=== PATIENT | female | born 1930 | race Caucasian/White ===

== ENCOUNTER 2017-01-22 20:05 | Observation (INO) | payer MEDICARE, OTHER ==
[2017-01-22 20:37] LABS: #Eosinphils 0.2 thou/uL (0.0-0.7); #Lymphocytes 1.6 thou/uL (1.20-3.40); #Monocytes 0.6 thou/uL (0.11-0.59); #Neutrophils 7.9 thou/uL (1.40-6.50); %Basophils 0.2 % (0.0-1.0); %Eosinophils 2.3 % (0.0-10.0); %Lymphocytes 15.6 % (21.0-51.0); %Monocytes 5.8 % (0.0-10.0); Hematocrit 39.7 % (36.0-47.0); Mean Platelet Volume 7.4 fL (7.4-10.4); Red Blood Cell (RBC) Count 4.15 mill/uL (4.20-5.40); White Blood Cell (WBC) Count 10.4 thou/uL (4.8-10.8)
[2017-01-22 20:58] LABS: ALT (SGPT) 37 U/L (8-55); AST (SGOT) 57 U/L (5-34); Alkaline Phosphatase 139 U/L (40-150); Anion Gap 15 mmol/L (10-20); BUN (Urea Nitrogen) 35 mg/dL (9.8-20.1); Bilirubin, Total 0.9 mg/dL (0.2-1.2); CK (CPK) 51 U/L (29-168); Calc. Creatinine Clearance 0 mL/min (70-130); Calcium 9.8 mg/dL (7.8-10.44); Carbon Dioxide 27 mmol/L (23-31); Chloride 100 mmol/L (98-107); Estimated GFR-MDRD 33; Globulin 4.1 g/dL (2.4-3.5); Lipase 102 U/L (8-78); Protein, Total 7.9 g/dL (6.0-8.3)
--- NOTE | 2017-01-22 20:59 | RAD ---
PORTABLE UPRIGHT FRONTAL CHEST RADIOGRAPH 01/22/17 COMPARISON: 06/19/16 HISTORY: Chest pain. FINDINGS: There is increased linear interstitial density throughout both lungs, similar when compared to prior imaging, suggesting chronic interstitial disease. Areas of previously noted air space disease have re solved. There is no pneumothorax or pleural fluid. There is no lobar consolidation, or alveolar edema . There is atherosclerotic calcification in the aortic arch. IMPRESSION: Increased linear interstitial density noted bilaterally. No focal consolidation or alveolar edema. POS: [facility]
[2017-01-22 21:02] LABS: Troponin I Less than 0.010 ng/mL (< 0.028)
[2017-01-22] MEDS ORDERED: Ondansetron HCl/PF 4 MG/2 ML Vial ONE (22:09)
[2017-01-22] MEDS ORDERED: Sodium Chloride 0.9% 1,000 ML IV SCH (23:15)
[2017-01-22 23:33] VITALS: BMI 25.2
[2017-01-22 23:47] LABS: Troponin I 0.012 ng/mL (< 0.028)
[2017-01-23] MEDS ORDERED: Morphine 4 MG/ML VIAL SLOW IVP PRN (00:02)
[2017-01-23] MEDS ORDERED: Acetaminophen 325 MG TAB PO PRN (00:02)
[2017-01-23] MEDS ORDERED: Nitroglycerin 0.4 MG TAB (25 Tab Bottle) PO PRN (00:02)
[2017-01-23] MEDS ORDERED: Guaifenesin DM 100-10/5 ML UDCUP PO PRN (00:02)
[2017-01-23] MEDS ORDERED: Insulin Regular 300 UNITS/3 ML VIAL SC PRN (00:02)
[2017-01-23] MEDS ORDERED: Dextrose 5% in Water 1,000 ML IV PRN (00:02)
[2017-01-23] MEDS ORDERED: traMADol HCl 50 MG TAB PO PRN (00:02)
[2017-01-23] MEDS ORDERED: Dextrose 50% Abboject 50 ML SYRINGE SLOW IVP PRN (00:02)
[2017-01-23] MEDS ORDERED: Sodium Chloride 0.9% 1,000 ML IV SCH (00:02)
[2017-01-23 02:39] LABS: #Lymphocytes 0.4 thou/uL (1.20-3.40); #Monocytes 0.6 thou/uL (0.11-0.59); #Neutrophils 8.7 thou/uL (1.40-6.50); %Eosinophils 0.3 % (0.0-10.0); %Lymphocytes 4.1 % (21.0-51.0); %Monocytes 6.6 % (0.0-10.0); Hematocrit 34.4 % (36.0-47.0); Mean Platelet Volume 7.6 fL (7.4-10.4); Red Blood Cell (RBC) Count 3.63 mill/uL (4.20-5.40); White Blood Cell (WBC) Count 9.7 thou/uL (4.8-10.8)
[2017-01-23 03:03] LABS: Troponin I 0.014 ng/mL (< 0.028)
[2017-01-23 04:09] LABS: Calcium 9.3 mg/dL (7.8-10.44); Chloride 103 mmol/L (98-107)
[2017-01-23 04:10] LABS: ALT (SGPT) 67 U/L (8-55); AST (SGOT) 147 U/L (5-34); Alkaline Phosphatase 193 U/L (40-150); Anion Gap 12 mmol/L (10-20); BUN (Urea Nitrogen) 32 mg/dL (9.8-20.1); Calc. Creatinine Clearance 32 mL/min (70-130); Carbon Dioxide 25 mmol/L (23-31); Cholesterol 153 mg/dl (< 200 Desired); Estimated GFR-MDRD 37; Globulin 3.2 g/dL (2.4-3.5); LDL Cholesterol, Calculated 93 mg/dL; Lipase 64 U/L (8-78); Protein, Total 6.4 g/dL (6.0-8.3)
[2017-01-23 04:17] VITALS: TEMP 98.7
--- NOTE | 2017-01-23 04:18 | HP ---
REASON FOR ADMISSION: Chest pain. HISTORY OF PRESENT ILLNESS: The patient gives history of having left-sided chest pain which started around 6:00 p.m. This was associated with nausea and she vomited a large amount in the ER here. The left lower ribcage pain is worse on deep palpation. No complaints of cough or expectoration. No hi story of fever. No complaints of palpitations, PND or orthopnea. Patient states she has had a recen t stress test done here which was normal. She has also had an angiogram several years ago in [place], which was normal as far she knows. The patient has significant stress at home due to personal loss. Her son, Mr. Madera was 58-year-old on Wednesday from [place]. His Burial is scheduled for Wednesday at 3 :00 p.m. This is in [place] and patient has to go tomorrow afternoon to [place]. She also lost her hu sband for COPD flare-up in February of this year. She normally walks by herself. PAST MEDICAL AND SURGICAL HISTORY: History of interstitial lung disease for which she follows up [facility] Dr. Pantoja, diabetes mellitus type 2 which is diet controlled, hypertension, hypothyroidism, dyslipidemia, chronic atrial fibrillation, right breast calcium buildup which was removed in 2005, ri ght arm, wart removed, hysterectomy. CURRENT MEDICATIONS: Patient is on Eliquis 5 mg p.o. twice daily, valsartan 160 mg p.o. daily, levot hyroxine 50 mcg p.o. daily, Lasix 40 mg p.o. daily, Actos 30 mg p.o. daily, simvastatin 20 mg p.o. lemuel tiwari, flecainide 50 mg p.o. twice daily, aspirin 81 mg p.o. daily, metoprolol extended release 25 mg p .o. daily, vitamin D3 of 1000 units p.o. daily, Ultram p.r.n. ALLERGIES: LEVAQUIN. PERSONAL HISTORY: Does not abuse alcohol or drugs. No history of smoking. FAMILY HISTORY: Father of a stroke and its complications. Her son of massive [place] at the ag e of 58 on Wednesday. REVIEW OF SYSTEMS: The following complete review of systems was negative, unless otherwise mentioned in the HPI or below: CONSTITUTIONAL: Weight loss or gain, ability to conduct usual activities. SKIN: Rash, itching. EYES: Double vision, pain. ENT/MOUTH: Nose bleeding, neck stiffness, pain, tenderness. CARDIOVASCULAR: Palpitations, dyspnea on exertion, orthopnea. RESPIRATORY: Shortness of breath, wheezing, cough, hemoptysis, fever or night sweats. GASTROINTESTINAL: Poor appetite, abdominal pain, heartburn, nausea, vomiting, constipation, or diarr hea. GENITOURINARY: Urgency, frequency, dysuria, nocturia. MUSCULOSKELETAL: Pain, swelling. NEUROLOGIC/PSYCHIATRIC: Anxiety, depression. ALLERGY/IMMUNOLOGIC: Skin rash, bleeding tendency. PHYSICAL EXAMINATION: GENERAL: The patient is an 86-year-old female who is not in any acute distress. VITAL SIGNS: Blood pressure 160/78, pulse 78 per minute, respiratory rate 20 per minute, temperature 98.9 degrees Fahrenheit, saturating 93% on room air. NECK: Supple, no elevated JVD. HEENT: Eyes, extraocular muscles intact. Pupils are reacting to light. Oral cavity mucous membrane s are dry. No exudates or congestion. CARDIOVASCULAR: S1, S2 heard. Regular rhythm. RESPIRATORY: Air entry 1+ bilaterally. No rales or rhonchi. ABDOMEN: Soft, bowel sounds heard. No tenderness, rigidity or guarding. EXTREMITIES: No peripheral edema or calf tenderness. VASCULAR SYSTEM: Peripheral pulses 2+ bilateral, no ischemic ulcerations or gangrene. CENTRAL NERVOUS SYSTEM: No gross focal deficits seen. Patient is alert, awake, oriented x3. PSYCHIATRIC: The patient's mood is a bit anxious, otherwise no hallucinations or delusions. LABORATORY AND X-RAY FINDINGS: EKG done shows normal sinus rhythm at 71 beats per minute. There is borderline LVH seen. Chest x-ray done shows increased linear interstitial density noted bilaterally, no focal consolidation or alveolar edema. White count of 10, H&H 13 and 39, platelet count 242 with 76% neutrophils. Electrolytes are stable. BUN 35, creatinine 1.4, glucose 213, AST 57, ALT 37, alk chavo phosphatase 139. Troponin x2 is negative. Lipase is 102, albumin is 3.8. CLINICAL IMPRESSION AND PLAN: The patient will be under observation on telemetry for atypical chest pain. She also has lost her son on Wednesday and the Burial is on Wednesday. Patient also had a large vom iting episode in the ER. Likely, she is stressed out from personal loss. She has had a recent stres s test. Two sets of troponin are negative. We will not do any further cardiac workup at this time. Patient follows up with Dr. Cedillo at [facility] and she needs to schedule a followup appointment in 4 weeks. She will be closely monitored on telemetry in view of her atrial fi brillation until morning. She can be released, if she remains hemodynamically stable and tolerating oral diet. The patient has elevated lipase and a repeat level will be obtained just to make sure thi s is not related to the pancreas. She has no complaints of abdominal pain as such. We will continue her Eliquis, aspirin, Lipitor, Tambocor, Synthroid, Lopressor, and valsartan as before. The dose of valsartan could be reduced to 80 mg on discharge. We will continue to closely monitor her for any h emodynamic compromise.
[2017-01-23 07:19] LABS: Bilirubin, Total 1.7 mg/dL (0.2-1.2)
[2017-01-23 08:05] VITALS: BP 145/65
[2017-01-23] MEDS ORDERED: Famotidine 20 MG TAB PO SCH (09:00)
[2017-01-23] MEDS ORDERED: Aspirin 325 MG TAB PO SCH (09:00)
[2017-01-23] MEDS ORDERED: Metoprolol Tartrate 25 MG TAB PO SCH (09:00)
[2017-01-23] MEDS ORDERED: Atorvastatin Calcium 10 MG TAB PO SCH (09:00)
[2017-01-23] MEDS ORDERED: Valsartan 80 MG TAB PO SCH (09:00)
[2017-01-23] MEDS ORDERED: Apixaban 5 MG TAB PO SCH (09:00)
--- NOTE | 2017-01-23 10:08 | PDOC.PN ---
- Subjective Encounter Start Date: 01/23/17 Encounter Start Time: 09:30 Subjective: No more chest pain. No N/V/Abd pain. Ate breakfast well. Sad about -: son but no SI or severe symptoms. Eager to go so she can make it to -: the . - Objective Resuscitation Status: Resuscitation Status FULL:Full Resuscitation MAR Reviewed: Yes Vital Signs & Weight: Vital Signs (12 hours) Temp Pulse Resp BP BP Pulse Ox 01/23/17 07:59 98.7 F 87 16 01/23/17 07:15 98.4 F 79 16 145/65 H 99 01/23/17 04:03 98.7 F 87 16 121/56 L 92 L 01/23/17 00:02 94 L 01/22/17 22:49 99.0 F 98 18 146/70 H 94 L Weight Admit Weight 147 lb 6.4 oz Weight 147 lb 6.4 oz I&O: 01/22/17 01/23/17 01/24/17 06:59 06:59 06:59 Intake Total 597 Output Total 400 Balance 197 Result Diagrams: 01/23/17 02:24 01/23/17 02:24 Additional Labs: Accuchecks 01/23/17 05:17 POC Glucose 192 H Phys Exam - Physical Examination Constitutional: NAD HEENT: moist MMs Respiratory: no wheezing, no rales, no rhonchi, clear to auscultation bilateral Cardiovascular: RRR, no significant murmur Gastrointestinal: soft, non-tender, positive bowel sounds Neurological: non-focal, moves all 4 limbs Psychiatric: normal affect, A&O x 3 Dx/Plan (1) Chest pain Code(s): R07.9 - CHEST PAIN, UNSPECIFIED Status: Resolved Qualifiers: (2) Acute stress reaction Code(s): F43.0 - ACUTE STRESS REACTION Status: Acute Plan: N/V resolved. Tearful when discusses her son, but no inappropriate or severe symptoms of depression at this time. Good community support from her sabianism. - Plan cont current plan of care D/C home. F/u with Dr. Cedillo in 2-3 weeks. * . - Discharge Day Encounter end time: 10:00
[2017-01-23] MEDS ORDERED: Glimepiride 1 MG TAB PO SCH (10:30)
--- NOTE | 2017-01-23 11:58 | DIS ---
DATE OF ADMISSION: 01/22/2017 DATE OF DISCHARGE: 01/23/2017 PRIMARY CARE PHYSICIAN: Dr. Diaz. DIAGNOSES ON ADMISSION: 1. Nausea and vomiting. 2. Atypical chest pain. 3. Elevated lipase. DIAGNOSES AT DISCHARGE: 1. Atypical chest pain, resolved. 2. Stress reaction. 3. Elevated lipase, resolved. PROCEDURES: None. CONSULTATIONS: None. PERTINENT LABORATORY: Negative D-dimer. Cardiac markers negative x3. Lipase originally 102, after significant vomiting resolved to 64 in the morning. SUMMARY OF HOSPITAL COURSE: This is an 86-year-old white female who recently lost her only remaining son. She is supposed to attend the tomorrow. Yesterday, the patient developed severe nause a associated with left lower ribcage pain, worse with deep palpation. The patient has had a recent n egative stress test done. She was in the emergency room, she had vomiting a large amount of material and then started feeling better. Her pain resolved. The patient was put in observation overnight. She was able to eat and drink without recurrence of pain or nausea and vomiting. Her lipase was mil dly elevated after the vomiting, but it resolved this morning. She is back to her normal state. Sym ptoms are most likely due to stress reaction from her son dying and the upcoming . She is fee ling back to normal now and would like to be discharged so she could make it to the . DISCHARGE MANAGEMENT: Discharge home. 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 Cedillo in the next 2- 3 weeks and follow up with her primary care physician, Dr. Diaz in the next 1-2 weeks. ACTIVITY: As tolerated. DIET: Diabetic, low sodium diet. Warnings given about worsening depression symptoms, to follow up with her primary care doctor and if the acute grief reaction does not resolve or gets worse, then she may need to start medication.
[2017-01-23] MEDS ORDERED: Levothyroxine Sodium 50 MCG TAB PO SCH (21:00)
[2017-01-24] MEDS ORDERED: Glimepiride 1 MG TAB PO SCH (09:00)
--- NOTE | 2017-01-26 13:26 | EKG ---
Test Reason : Blood Pressure : / mmHG Vent. Rate : 071 BPM Atrial Rate : 071 BPM P-R Int : 136 ms QRS Dur : 096 ms QT Int : 392 ms P-R-T Axes : 069 000 012 degrees QTc Int : 425 ms Normal sinus rhythm Minimal voltage criteria for LVH, may be normal variant Borderline ECG Confirmed by PAULINA HOUSE, HIMA ([id number]), health editor RYAN MARRUFO ([id number]) on 01/26/2017 1:25:50 PM Referred By: Confirmed By:HIMA GALLARDO MD
== END 2017-01-23 11:00 | disposition home or self-care (01) ==
LOC: ERS 20:05 → 2SW 21:36
PROVIDERS: ADMIT Internal Medicine; ATTEND Internal Medicine
DX: R07.89 Other chest pain (principal); R74.8 Abnormal levels of other serum enzymes; E11.9 Type 2 diabetes mellitus without complications; I10 Essential (primary) hypertension; E03.9 Hypothyroidism, unspecified; I48.2 Chronic atrial fibrillation; Z79.01 Long term (current) use of anticoagulants; Z79.82 Long term (current) use of aspirin; Z79.899 Other long term (current) drug therapy; Z85.828 Personal history of other malignant neoplasm of skin; Z82.49 Family history of ischemic heart disease and other diseases of the circulatory system; Z88.1 Allergy status to other antibiotic agents; Z90.710 Acquired absence of both cervix and uterus; Z98.890 Other specified postprocedural states; E78.00 Pure hypercholesterolemia, unspecified
CPT/HCPCS: 71010; 80053 ×2; 80061; 82550; 82553; 82962; 83690 ×2; 84484 ×3; 85025 ×2; 85379; 93005; 94760; 96360; 96361; 96374; 97139; 99285; G0378; 36415; 36416; J1815; J2405

== ENCOUNTER 2017-03-11 08:24 | Outpatient (CLI) | payer MEDICARE, OTHER ==
--- NOTE | 2017-03-11 13:22 | ULT ---
ULTRASOUND ABDOMEN COMPLETE: Note to billing office: a right upper quadrant ultrasound is entered into the system, but the sonogra pher performed a complete abdominal ultrasound. 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 TECHNIQUE: Hilton-scale ultrasound evaluation of the liver, gallbladder, spleen, pancreas, common bile duct, kidne ys, abdominal aorta, and inferior vena cava (IVC). FINDINGS: Hepatic margins are nodular. Right lobe of liver is small. Left lobe of the liver is not small. Hepat ic echotexture is diffusely heterogeneous. No hydronephrosis of bilateral kidneys. A 1.5 cm cyst at the junction between the renal sinus and rig ht upper pole parenchyma in the right kidney. No splenomegaly. Nonspecific sonographic appearance of the pancreas. Gallbladder is contracted despite the patient not being NPO. Difficult to evaluate gallbladder becaus e of contraction. Gallbladder wall thickness 3 mm. No definite gallstone identified. No pericholecyst ic edema. Common duct caliber 7 mm. No ascites identified. Limited visualization of inferior vena cava. Abdominal aorta not demonstrated on these images, presumably obscured by shadowing from bowel gas. IMPRESSION: 1. Hepatic cirrhosis. 2. Contracted gallbladder. BRI Hoskins POS: [facility]
== END 2017-03-11 08:25 | disposition home or self-care (01) ==
LOC: ULT 08:24
PROVIDERS: ATTEND Internal Medicine Gastroenterology
DX: K74.60 Unspecified cirrhosis of liver (principal); K82.0 Obstruction of gallbladder
CPT/HCPCS: 76705

== ENCOUNTER 2017-03-23 18:25 | Inpatient (IN) | payer MEDICARE, OTHER ==
[~2017-03-23 18:25] MED LIST: ISOVUE-370 76%-LOCM 1 ML ONE
[2017-03-23 19:01] LABS: #Eosinphils 0.1 thou/uL (0.0-0.7); #Lymphocytes 1.5 thou/uL (1.20-3.40); #Monocytes 0.7 thou/uL (0.11-0.59); #Neutrophils 6.5 thou/uL (1.40-6.50); %Basophils 0.4 % (0.0-1.0); %Eosinophils 1.4 % (0.0-10.0); %Lymphocytes 16.9 % (21.0-51.0); %Monocytes 7.5 % (0.0-10.0); %Neutrophils 73.9 % (42.0-75.0); Hemoglobin 12.8 g/dL (12.0-16.0); Mean Corpuscular HGB CONC 32.9 g/dL (32.0-36.0); Mean Corpuscular Hemoglobin 31.2 pg (27.0-31.0); Mean Platelet Volume 8.2 fL (7.4-10.4); Platelet Count 159 thou/uL (130-400); RBC Distribution Width 12.4 % (11.5-14.5); Red Blood Cell (RBC) Count 4.09 mill/uL (4.20-5.40); White Blood Cell (WBC) Count 8.7 thou/uL (4.8-10.8)
[2017-03-23 19:09] LABS: INR-International Normal Ratio 1.2; PTT 32.7 SEC (22.9-36.1)
[2017-03-23 19:26] LABS: ALT (SGPT) 83 U/L (8-55); AST (SGOT) 109 U/L (5-34); Albumin 3.7 g/dL (3.4-4.8); Alkaline Phosphatase 203 U/L (40-150); Anion Gap 12 mmol/L (10-20); BUN (Urea Nitrogen) 20 mg/dL (9.8-20.1); Bilirubin, Total 2.9 mg/dL (0.2-1.2); CK (CPK) 46 U/L (29-168); Calc. Creatinine Clearance 0 mL/min (70-130); Calcium 9.8 mg/dL (7.8-10.44); Carbon Dioxide 30 mmol/L (23-31); Chloride 101 mmol/L (98-107); Estimated GFR-MDRD 41; Glucose 144 mg/dL (83-110); Potassium 3.8 mmol/L (3.5-5.1); Protein, Total 7.7 g/dL (6.0-8.3); Sodium 139 mmol/L (136-145)
--- NOTE | 2017-03-23 19:26 | RAD ---
PORTABLE CHEST: 03/23/17 HISTORY: Chest pain. COMPARISON: 01/22/17. Heart is mildly prominent. Prominent aortic calcification again noted. The vascular and interstitial markings are prominent but are stable from prior exam. Some of the interstitial markings may represe nt chronic interstitial change rather than edema. No effusion. No focal infiltrate. IMPRESSION: Chronic appearing lung changes which appear stable from prior exam. POS: [facility]
[2017-03-23] MEDS ORDERED: Ondansetron HCl/PF 4 MG/2 ML Vial ONE (19:30)
[2017-03-23] MEDS ORDERED: Labetalol HCl 100 MG/20 ML VIAL ONE (19:30)
[2017-03-23 19:31] LABS: CKMB 0.9 ng/mL (0-6.6); Troponin I 0.017 ng/mL (< 0.028)
[2017-03-23] MEDS ORDERED: Acetaminophen 500 MG TAB ONE (20:38)
[2017-03-23] MEDS ORDERED: Piperacillin/Tazobactam 4.5 GM in Sodium Chloride 0.9% 100 ML IVPB SCH (20:45)
[2017-03-23] MEDS ORDERED: Aspirin 300 MG Suppository ONE (21:31)
[2017-03-23] MEDS ORDERED: Acetaminophen 325 MG Suppository ONE (21:31)
[2017-03-23] MEDS ORDERED: Acetaminophen 650 MG Suppository ONE (21:31)
[2017-03-23 21:57] LABS: Troponin I 0.033 ng/mL (< 0.028)
--- NOTE | 2017-03-23 22:02 | ULT ---
GALLBLADDER ULTRASOUND: 03/23/17 HISTORY: Epigastric pain, nausea, vomiting. Gallbladder is distended. There is echogenic sludge seen in the gallbladder. There is a tiny amount o f pericholecystic edema. Technologist describes a negative Bocanegra's sign. Common bile duct is mildly dilated measured up to 1.2 cm. There is also mild intrahepatic ductal dila tation. The liver is unremarkable. The right kidney shows no evidence of hydronephrosis. A small cyst in the mid right kidney measures 1.3 cm. The pancreas is partially imaged and appears unremarkable as visualized. IMPRESSION: 1. Distended gallbladder with mild pericholecystic edema and echogenic sludge. 2. Dilated common bile duct and mild dilatation of intrahepatic bile ducts. Common duct stone or ampullary lesion should be excluded. POS: [facility]
--- NOTE | 2017-03-23 22:10 | CT ---
CT ABDOMEN AND PELVIS WITH CONTRAST 03/23/17 Multiple axial tomograms obtained through the abdomen and pelvis with IV enhancement. HISTORY: Abdominal pain. Nausea and vomiting. Upper abdominal pain. FINDINGS: The gallbladder is distended and there is pericholecystic fluid which corresponds to the ultrasound f indings. The ultrasound also demonstrated gallbladder sludge although no definite gallstones were alma arent. There is intra and extrahepatic biliary duct dilatation which was seen on ultrasound. There is an area of low attenuation in the pancreatic head region measuring 1.0 cm. This may be cystic. Neopl asm is not excluded. The liver, spleen and pancreas otherwise unremarkable. Adrenal glands unremarkable. There are parapel merari cysts in the upper pole of the left kidney measuring up to 3 cm. A mid pole cyst measures 2.5 cm and a lower pole cyst on the left measures 5.3 cm. There are also several smaller cysts in the right kidney. No hydronephrosis. Urinary bladder is distended and appears unremarkable. Small bowel loops are normal caliber. Appendix is unremarkable. The colon shows scattered diverticula . Transverse colon is nondistended and not adequately evaluated. No evidence of diverticulitis. Images through the pelvis shows evidence of hysterectomy. Aorta is normal caliber. IMPRESSION: 1. The gallbladder is abnormally distended with pericholecystic fluid. There is mild intra and e xtrahepatic biliary duct dilatation corresponding to ultrasound findings. 2. 1.0 cm low density lesion in the pancreatic head which is indeterminate. Followup will be nec essary to confirm stability. 3. Bilateral renal cystic lesions as described. POS: [facility]
[2017-03-23 22:25] LABS: Bilirubin Small (Negative); Blood, Urine Small (Negative); Clarity CLOUDY (Clear); Glucose, Urine (Dipstick) Negative (Negative); Leukocyte Moderate (Negative); Nitrite Negative (Negative); Protein, Urine (Dipstick) 100 mg/dL (Neg-Trace); Specific Gravity, Urine 1.024 (1.002-1.036)
[2017-03-23 22:27] LABS: Bacteria/HPF 4+ HPF (None Seen); Hyaline Casts/LPF 0-3 HYALINE CAST LPF (0-3 Hyaline)
[2017-03-24] MEDS ORDERED: Acetaminophen 325 MG TAB PO PRN (00:12)
[2017-03-24] MEDS ORDERED: HYDROcodone/Acetaminophen 5/325 mg Tablet PO PRN (00:12)
--- NOTE | 2017-03-24 03:57 | HP ---
CHIEF COMPLAINT: Nausea and vomiting. HISTORY OF PRESENT ILLNESS: An 86-year-old female with a known history of diabetes, cholesterol, hyp othyroidism, chronic atrial fibrillation on Eliquis, interstitial lung disease, who presents with a c hief complaint of chest discomfort, nausea, vomiting over the last 2 days. It appears that the patie nt had sudden onset of nausea and vomiting, for the last 2 days has been unable to tolerate p.o. Den ies any diarrhea. Had a normal bowel movement yesterday. She endorses subjective fevers and chills as well. Denies any prior similar episodes. Indicates that her emesis episodes have been mostly seymour d initially followed bilious fluid. Denies any blood in her emesis. Endorses having a significant a mount of chest and abdominal discomfort. She really points to her epigastrium when she describes her chest discomfort, no radiation of the pain. REVIEW OF SYSTEMS: As per HPI. CONSTITUTIONAL: Subjective fevers and chills as per above. HEENT: No new headaches, vision changes or dizziness. CARDIOVASCULAR: Chest pain without radiation, substernal centrally encompassing the lower portion of her sternum and epigastrium. RESPIRATORY: No shortness of breath. No new cough. No new dyspnea with exertion. ABDOMEN: Abdomi nal pain as per above. Nausea, vomiting as per above. MUSCULOSKELETAL: No new myalgias or arthralgias. NEUROLOGICAL: No new paresthesias or anesthetic sensations. The remainder of review of systems otherwise negative. PAST MEDICAL HISTORY: As per above. 1. Interstitial lung disease, follows up with Dr. Acevedo. 2. Type 2 diabetes. 3. Hypertension. 4. Hypothyroidism. 5. Hyperlipidemia. 6. Chronic atrial fibrillation on Eliquis for anticoagulation. PAST SURGICAL HISTORY: Status post hysterectomy, otherwise no other surgeries. HOME MEDICATIONS: Please see the EMR for full details. The patient denies any recent changes on her home medication regimen over the last month. FAMILY HISTORY: Significant for stroke in her father and myocardial infarction in her son who recent ly passed approximately a month ago from this myocardial infarction. ALLERGIES: LEVAQUIN. SOCIAL HISTORY: Denies any tobacco use, denies any alcohol, denies any drugs. CODE STATUS: She indicates that she wishes to be full code at this point in time and that her nephew , Rupert, would be her medical decision maker if she is unable to make her own medical decisions. O f note, the patient states that while she is full code, if she were to become "sustained on life sust aining machines," she would not want to be in such a state for more than 30 days. She has a living w ill, which is currently in [place] with her machine spring former. PHYSICAL EXAMINATION: VITAL SIGNS: Blood pressure 167/71, respirations 24, pulse of 90, satting 98% on 2 liters nasal uri jenise, temperature of 99.9, T-max of 102.7 noted in the emergency department at 8:16. GENERAL: The patient is awake, alert, appropriate, appears to be a reasonable historian, seated in t he bed in no acute distress. HEENT: Normocephalic, atraumatic. Mucous membranes are dry, equal ocular motions are intact. Pupil s equal and reactive. CARDIOVASCULAR: S1, S2. No murmurs, rubs or gallops. Pulses 2+ bilateral upper extremities, no pit ting pedal edema. No JVD. RESPIRATORY: Clear to auscultation with some bibasilar atelectatic type sounding, otherwise no wheez es, rales or rhonchi. ABDOMEN: Positive bowel sounds. ABDOMEN: Soft, slightly tender to palpation along the epigastrium. MUSCULOSKELETAL: Moving all 4 extremities equally. Able to sit up in the bed without difficulty or assistance. LABORATORY DATA AND IMAGIN03/23/2017 Chest x-ray "chronic appearing lung changes which appear st able from prior exam." 03/23/2017 - Ultrasound of the gallbladder right upper quadrant "distended gallbladder with mild reilly cholecystic edema and echogenic sludge. Dilated common bile duct and mild dilatation of intrahepatic bile ducts. Common duct stone or ampullary lesion should be excluded." 03/23/2017 - CT of the abdomen and pelvis with contrast impression " the gallbladder is abnormally di stended with pericholecystic fluid. There is mild intra and extrahepatic biliary duct dilatation cor responding to ultrasound findings. 1.0 cm low density lesion in the pancreatic head which is indeter minate. Follow up will be necessary to confirm stability". Bilateral renal cystic lesions as descr ibed. ASSESSMENT AND PLAN: An 86-year-old female who presents with nausea and vomiting. 1. Nausea and vomiting. Imaging as per above suggests the possibility of an acalculous cholecystiti s as there is no stone indicated, but the patient does have noted pericholecystic edema, echogenic sl udge, pericholecystic fluid and distention. No size commentary was noted to determine if it was grea ter than 5 cm necessarily. A routine consultation for Gastroenterology with a request for a HIDA sca n in the morning. The patient will be placed on IV fluids, n.p.o. status, empiric piperacillin, tazo bactam has been given in the emergency department, it will be continued. Also concerning is the pres ence of hyperbilirubinemia and mild transaminitis including elevated alkaline phosphatase on initial evaluation. We will recheck these values in the morning. 2. Sepsis with concern for gallbladder disease in the setting of a temperature and tachypnea. We wi ll closely monitor and initiate sepsis protocol. The patient is currently hemodynamically stable. 3. Elevated troponin, suspect it is a component of demand ischemia. I will consider Cardiology cons ultation for the patient with serial troponins, EKG in the morning along with a 2-D echocardiogram. 4. Low density lesion of the pancreatic head. I will continue to monitor the patient's lipase, it h as been negative. 5. History of atrial fibrillation, currently rate controlled. Continue her home regimen. We will h old on the patient's home Eliquis in case any procedure is needed and close monitoring. 6. Hypothyroidism. Continue the patient on her home regimen. 7. Diabetes. The patient is currently n.p.o., check serial glucose and closely monitor. 8. The patient is admitted inpatient medical/surgical with telemetry. The patient is full code as d iscussed above. Thank you for asking me care for the patient. For questions or concerns, please contact me at [facility].
[2017-03-24] MEDS ORDERED: Piperacillin/Tazobactam 2.25 GM in Sodium Chloride 0.9% 50 ML IVPB SCH (06:15)
[2017-03-24 07:01] LABS: #Lymphocytes 0.8 thou/uL (1.20-3.40); #Monocytes 0.5 thou/uL (0.11-0.59); #Neutrophils 8.6 thou/uL (1.40-6.50); %Basophils 0.1 % (0.0-1.0); %Eosinophils 0.1 % (0.0-10.0); %Lymphocytes 8.3 % (21.0-51.0); %Monocytes 4.8 % (0.0-10.0); %Neutrophils 86.8 % (42.0-75.0); Hemoglobin 10.6 g/dL (12.0-16.0); Mean Corpuscular HGB CONC 32.8 g/dL (32.0-36.0); Mean Corpuscular Hemoglobin 31.2 pg (27.0-31.0); Mean Corpuscular Volume 95.4 fl (81.0-99.0); Mean Platelet Volume 8.9 fL (7.4-10.4); Platelet Count 120 thou/uL (130-400); RBC Distribution Width 12.3 % (11.5-14.5)
[2017-03-24 07:24] LABS: ALT (SGPT) 70 U/L (8-55); AST (SGOT) 92 U/L (5-34); Albumin 2.9 g/dL (3.4-4.8); Alkaline Phosphatase 165 U/L (40-150); Anion Gap 10 mmol/L (10-20); BUN (Urea Nitrogen) 19 mg/dL (9.8-20.1); Bilirubin, Total 3.4 mg/dL (0.2-1.2); Calc. Creatinine Clearance 31 mL/min (70-130); Calcium 8.8 mg/dL (7.8-10.44); Carbon Dioxide 30 mmol/L (23-31); Chloride 105 mmol/L (98-107); Estimated GFR-MDRD 37; Glucose 280 mg/dL (83-110); Potassium 4.3 mmol/L (3.5-5.1); Protein, Total 5.9 g/dL (6.0-8.3); Sodium 141 mmol/L (136-145)
[2017-03-24 07:29] LABS: Troponin I 0.034 ng/mL (< 0.028)
[2017-03-24] MEDS: Sodium Chloride 0.9% 1,000 ML IV SCH ×3 (10:05→22:11)
[2017-03-24] MEDS: Piperacillin/Tazobactam 2.25 GM in Sodium Chloride 0.9% 100 ML IVPB SCH ×3 (10:05→22:11)
[2017-03-24] MEDS: Famotidine/PF 20 mg/2ml Vial SLOW IVP SCH ×2 (11:55→20:09)
[2017-03-24 12:58] LABS: Troponin I 0.016 ng/mL (< 0.028)
--- NOTE | 2017-03-24 13:46 | NM ---
NUCLEAR MEDICINE HIDA SCAN: CLINICAL HISTORY: Acalculous cholecystitis. Abdominal pain. FINDINGS: Scintigraphic imaging was performed following IV radiotracer administration. There is uptake of acti vity within the liver. There is nonvisualization of the gallbladder, subsequent to standard 60-minut e imaging. Afterwards, 2 mg of morphine sulfate was administered intravenously with 90 minute delaye d imaging performed. There remains nonvisualization of the gallbladder. No bowel activity is seen. IMPRESSION: 1. Nonvisualization of the gallbladder, indicating cystic duct obstruction. 2. Persistence of radiotracer within the liver, without discernible bowel activity. This may relate to a concomitant common duct obstruction, the acuity of which is not ascertained on the basis of thi s exam. The possibility of hepatocellular disease is not excluded. Recommend clinical correlation. POS: [facility]
--- NOTE | 2017-03-24 13:50 | PDOC.PN ---
- Subjective Encounter Start Date: 03/24/17 Encounter Start Time: 13:40 -: old records requested/rev Pt seen and examined, chart reviewed in its entirety. This is my first visit with this patient. Still with some RUQ pain. no F/C, no N/V/d/C. HIDA reviewed, no GB filling, ? cystic duct obstruction - Objective Resuscitation Status: Resuscitation Status FULL:Full Resuscitation MAR Reviewed: Yes Vital Signs & Weight: Vital Signs (12 hours) Temp Pulse Resp BP Pulse Ox 03/24/17 11:59 97.6 F 58 L 20 133/83 96 03/24/17 08:00 97.6 F 62 20 157/69 H 03/24/17 07:10 98.4 F 64 18 98 03/24/17 05:40 98.4 F 64 18 148/63 H 98 Weight Weight 145 lb 12.8 oz Result Diagrams: 03/24/17 06:29 03/24/17 06:29 Additional Labs: Accuchecks 03/24/17 03/24/17 12:04 04:57 POC Glucose 180 H 258 H Radiology Reviewed by me: Yes EKG Reviewed by me: Yes Phys Exam - Physical Examination Constitutional: NAD HEENT: PERRLA, moist MMs, sclera anicteric, oral pharynx no lesions Neck: no nodes, no JVD, supple, full ROM Respiratory: no wheezing, no rales, no rhonchi, clear to auscultation bilateral Cardiovascular: RRR, no significant murmur, no rub Gastrointestinal: soft, no distention, positive bowel sounds RUQ TTP, Bocanegra sign present Musculoskeletal: no edema, pulses present Neurological: non-focal, normal sensation, moves all 4 limbs Lymphatic: no nodes Psychiatric: normal affect, A&O x 3 Skin: no rash, normal turgor, cap refill <2 seconds Dx/Plan (1) Acute cholecystitis due to biliary calculus Code(s): K80.00 - CALCULUS OF GALLBLADDER W ACUTE CHOLECYST W/O OBSTRUCTION Status: Acute Comment: surgery consult, NPO (2) HTN (hypertension) Code(s): I10 - ESSENTIAL (PRIMARY) HYPERTENSION Status: Chronic Qualifiers: Hypertension type: essential hypertension Qualified Code(s): I10 - Essential (primary) hypertension (3) CARLOS (acute kidney injury) Code(s): N17.9 - ACUTE KIDNEY FAILURE, UNSPECIFIED Status: Resolved Comment : better this AM after hydration (4) Dyslipidemia Code(s): E78.5 - HYPERLIPIDEMIA, UNSPECIFIED Status: Chronic (5) IPF (idiopathic pulmonary fibrosis) Code(s): J84.112 - IDIOPATHIC PULMONARY FIBROSIS Status: Chronic (6) Chest pain Code(s): R07.9 - CHEST PAIN, UNSPECIFIED Status: Acute Qualifiers: Comment: suspect deman ischemia, Slight trop elevation. cArdiology ocnsulted, Echo being down now - Plan cont current plan of care * .
--- NOTE | 2017-03-24 18:15 | CON ---
DATE OF CONSULTATION: 03/24/2017 HISTORY OF PRESENT ILLNESS: The patient is an 86-year-old female who was in her normal sta te of health until the day prior to admission when she developed severe epigastric and lower chest pa in. She says it radiated around that area and felt like a band-like constriction in that area. It w as associated with nausea, vomiting. She had a similar episode 4 months ago. She recently had liver function tests in my office that were totally normal. She carries a diagnosis of cirrhosis based on CT that was performed back in 2016. Repeat was performed in August, which showed evidence of cirrhosi s without mass lesions, bilateral renal cysts, diverticulosis, hysterectomy, degenerative spine aly es. She denies any weight loss, any fever but did have chills. She has had no change in bowel funct ion. PAST MEDICAL HISTORY: Includes diabetes mellitus, atrial fibrillation on Eliquis, hyperlipidemia, hy pothyroidism, diabetes mellitus, and interstitial lung disease. PAST SURGICAL HISTORY: Includes hysterectomy. MEDICATIONS: Include tramadol 50 mg p.o. q.6 hours p.r.n., Zofran 4 mg p.o. q.6 hours p.r.n., vitami n D3 1000 units p.o. daily, metoprolol 25 mg p.o. daily, aspirin 81 mg p.o. daily, simvastatin 20 mg p.o. daily, Lasix 40 mg p.o. daily, flecainide 50 mg p.o. b.i.d., valsartan 160 mg p.o. daily, Synthr oid 50 mcg p.o. at bedtime, and Eliquis 5 mg p.o. b.i.d. ALLERGIES: Include LEVOFLOXACIN. SOCIAL HISTORY: She does not smoke or drink. FAMILY HISTORY: Negative for GI or liver disease. REVIEW OF SYSTEMS: Constitutional: No fever. Positive for chills. No weight loss. Eyes: No blur red vision, double vision. ENT: No sore throat or earaches. Cardiovascular: No chest pain or palp itations. Pulmonary: No shortness of breath, cough or wheezing. Gastrointestinal: See above. Gen itourinary: No hematuria or dysuria. Musculoskeletal: No joint pain or muscle weakness. Skin: No rashes. Neurologic: No numbness or seizure activity. PHYSICAL EXAMINATION: GENERAL: Shows a well-developed, well-nourished, elderly white female in no acute distress. VITAL SIGNS: Temperature 97.6, pulse 61, respiratory rate 18, blood pressure 141/64. HEENT: Unremarkable. NECK: Supple. CHEST: Clear. CARDIOVASCULAR: Regular rate and rhythm without murmurs or gallops. ABDOMEN: Soft, nontender, without organomegaly or masses. Bowel sounds present and normoactive. RECTAL: Deferred. EXTREMITIES: Normal. LABORATORY: Shows a white blood cell count 10.0, hemoglobin 10.6, hematocrit 32.4. PT is 15.0 with an INR of 1.2. Laboratory shows a creatinine 1.37, glucose 280, total bilirubin 3.4, AST 92, ALT 70, alkaline phosphatase 165, albumin 2.9. Urinalysis shows a moderate leukocyte esterase, 11-20 rbc's and 11-20 wbc's. Abdominal ultrasound shows a distended gallbladder with mild pericholecystic edema and echogenic sludge, dilated common bile duct and mild dilatation of intrahepatic bile ducts. Abdom inal pelvic CT shows gallbladder is abnormally distended with pericholecystic fluid. There is mild i ntra and extrahepatic biliary ductal dilatation. A 1 cm low density lesion in the pancreatic head, w hich is indeterminate. Hepatobiliary scan showed nonvisualization of the gallbladder indicating a cy stic duct obstruction, persistence of the radiotracer within the liver without discernible bowel acti vity. ASSESSMENT: 1. An 86-year-old female with epigastric pain consistent with biliary tract origin. The patient has a distended gallbladder and a dilated biliary tree and abnormal LFTs consistent with cholestasis. T his is new as her LFTs in February were normal. This clinical scenario is consistent with a common du ct stone and/or acute cholecystitis. 2. Afebrile, on Eliquis. 3. Cirrhosis diagnosed less than a year ago by CT scan. RECOMMENDATIONS: 1. ERCP tomorrow. 2. Hold Eliquis. 3. Consider surgical opinion.
--- NOTE | 2017-03-24 18:58 | CON ---
DATE OF CONSULTATION: 03/24/2017 REASON FOR CONSULTATION: Detectable low level troponin in a patient with cholecystitis. HISTORY OF PRESENT ILLNESS: Ms. Carballo is an 86-year-old woman, patient of Dr. Paul Cedillo. He s ees her for paroxysmal atrial fibrillation. Her atrial fibrillation has been well controlled and she has done well with that. She was admitted to the hospital with upper epigastric pain going across h er upper abdomen. As part of the evaluation, she underwent troponin levels which were slightly detec table as outlined above. Patient has a history of chronic atrial fibrillation. She has been on Eliquis, also told that she avendano d interstitial lung disease, no history of coronary artery disease. REVIEW OF SYSTEMS: Constitutional: No significant weight gain or loss. Vision: No changes. Heari ng: No changes. Pulmonary: No cough or wheezing. Cardiac: No chest pain, no palpitations. Gastr ointestinal: No nausea, vomiting, diarrhea. Skin: No rashes. Neurologic: No unilateral weakness or numbness. psychiatric: No unusual depression or anxiety. He matologic: No unusual bruising. Genitourinary: No burning with urination. PAST MEDICAL HISTORY: 1. Interstitial lung disease. 2. Diabetes. 3. Hypertension. 4. Hyperlipidemia. 5. Paroxysmal atrial fibrillation. PAST SURGICAL HISTORY: Hysterectomy. HOME MEDICATIONS: 1. The patient was taking flecainide. 2. Apparently, was taking Eliquis. 3. Metoprolol. 4. Aspirin. 5. Simvastatin. 6. Valsartan. 7. Levothyroxine. ALLERGIES: LEVOFLOXACIN. PHYSICAL EXAMINATION: GENERAL: This is a pleasant elderly woman resting comfortably in no distress. VITAL SIGNS: Blood pressure 140/64, pulse 60, it is regular. EYES: Sclerae nonicteric. Mouth mucous membranes moist. NECK: Supple, no lymphadenopathy. LUNGS: Clear, no wheezing, rales or rhonchi. CARDIOVASCULAR: Normal S1, normal S2. There is no murmur, rub or gallop. ABDOMEN: Soft, nontender, no hepatosplenomegaly. EXTREMITIES: Warm, dry, no clubbing, cyanosis or edema. Peripheral pulses are present. Dorsalis pe dis pulses bilaterally. SKIN: Warm and dry. PSYCHIATRIC: Mood and affect are normal. NEUROLOGIC: Grossly normal. PERTINENT LABORATORY AND X-RAY FINDINGS: Hemoglobin 10.6. Her troponin 0.034, followed by 0.016, wh ich is indeterminate, followed by negative. AST 92, ALT 70, bilirubin 3.4, glucose 280, creatinine 1 .37. Platelet count 120. ASSESSMENT: 1. Paroxysmal atrial fibrillation. 2. EKG is now normal. 3. Barely detectable troponin, demand ischemia. 4. Ejection fraction is normal. PLAN: 1. Okay to proceed with ERCP as being planned. 2. Hold Eliquis at this time. She has not received any Eliquis since she has been here. It would b e at least 48 hours since her last dose of Eliquis, it would be reasonable to proceed with the proced ure as you are planning.
[2017-03-24 19:47] LABS: Troponin I 0.027 ng/mL (< 0.028)
--- NOTE | 2017-03-24 19:58 | CON ---
DATE OF CONSULTATION: 03/24/2017 REQUESTING PHYSICIAN: Dr. Hudson. HISTORY OF PRESENT ILLNESS: This is an 86-year-old woman with history of type 2 diabetes mellitus, c hronic atrial fibrillation, on Eliquis. The patient presented with a chief complaint of epigastric a bdominal pain which was band-like in nature. The pain was associated with multiple episodes of nonbi lious emesis 2 days ago. The patient attempted to take some soup and was unable to retain. She pres ented to emergency department with worsening epigastric abdominal pain. She denies any radiation to her back. She rated the pain at 10/10. The patient denied any nausea or vomiting. She was seen in Emergency Department yesterday. Workup at that time included an abdominal ultrasound which revealed a dilated gallbladder with pericholecystic fluid. At the time of my evaluation, the patient reports decreasing abdominal pain. She denies any nausea a t the moment. PAST MEDICAL HISTORY: Significant for type 2 diabetes mellitus, interstitial lung disease, essential hypertension, hyperlipidemia, chronic atrial fibrillation, and hypothyroidism. PAST SURGICAL HISTORY: Pertinent for hysterectomy. FAMILY HISTORY: Noncontributory for this patient's age. SOCIAL HISTORY: The patient denies any cigarette smoking, ethanol, or illicit drug abuse. MEDICATIONS: I have reviewed prehospitalization medications. ALLERGIES: LEVOFLOXACIN. REVIEW OF SYSTEMS: Ten point review of systems is essentially unremarkable except for as stated in p ast medical history and chief complaint. PHYSICAL EXAMINATION: GENERAL: This reveals an 86-year-old normally developed woman, who is otherwise coherent and interac tive and appears stated age. The patient is alert and oriented x3, appears to be in no acute distres s at the time of my evaluation. VITAL SIGNS: Blood pressure 133/83, pulse 58, respiratory rate is 20, temperature 97.6 degrees Fahre nheit, oxygen saturation 96% on room air. HEENT: Normocephalic and atraumatic. Pupils are equal, round, and reactive to light and accommodati on. Extraocular muscles are intact bilaterally. No scleral icterus is present. Oral mucosa is pink and moist. No lesions are noted. NECK: Supple. No palpable lymphadenopathy or thyromegaly present. HEART: Reveals regular rate and rhythm. No murmurs or gallops auscultated. LUNGS: Clear to auscultation bilaterally. Breathing is regular and unlabored. ABDOMEN: Soft with mild tenderness in the epigastrium. She has a negative Bocanegra sign. Liver and s pleen are nonpalpable below costal margins. EXTREMITIES: Reveal 2+ radial and pedal pulses bilaterally. No ankle edema is present. NEUROLOGIC: Reveals no focal deficits present. PERTINENT LABORATORY FINDINGS: Today includes CBC with 10,000 white blood cells, hemoglobin 10.6, he matocrit is 32.4, platelet count is 120,000. Metabolic profile: Sodium 141, potassium is 4.3, chlor marcus is 105, bicarbonate 30, BUN 19, creatinine is 1.37, glucose is 280, total bilirubin is elevated a t 3.4, AST and ALT are also elevated at 92 and 70 respectively. Alkaline phosphatase is also elevate d at 165. Serum lipase yesterday was normal at [address] scan of the abdomen and pelvi s as well as ultrasound of the abdomen was significant for distended gallbladder with pericholecystic fluid. Common bile duct is also noted to be dilated at 12 mm in diameter. There is mild intrahepat ic ductal dilatation as well. HIDA scan was obtained today which revealed non-visualized gallbladder . IMPRESSION: 1. Acute cholecystitis. 2. Likely choledocholithiasis. PLAN: ERCP per Gastroenterology followed by a laparoscopic cholecystectomy. I have advised the alexandra ent of the above findings and plan. I have advised the patient also of the risks and benefits of the proposed surgery. The risks include, but not limited to bleeding, infection, injury to bile duct or surrounding structures. This information was given to the patient in the presence of her nurse. Sh e indicates understanding of the information I have given her today. I answered her questions. The patient has given consent for this surgical intervention. Thank you again, Dr. Hudson, for allowing me the opportunity to participate in the care of this patie nt.
[2017-03-24] MEDS: Flecainide 50 MG TAB PO SCH (20:07)
[2017-03-24] MEDS: Levothyroxine Sodium 50 MCG TAB PO SCH (20:08)
--- NOTE | 2017-03-24 21:16 | EKG ---
Test Reason : Blood Pressure : / mmHG Vent. Rate : 056 BPM Atrial Rate : 056 BPM P-R Int : 160 ms QRS Dur : 086 ms QT Int : 460 ms P-R-T Axes : 043 005 000 degrees QTc Int : 443 ms Sinus bradycardia Left axis deviation Borderline Prolonged QT When compared with ECG of 23-MAR-2017 18:31, No significant change was found Confirmed by BAN STEELE ([id number]) on 03/24/2017 9:16:07 PM Referred By: MESHA Confirmed By:BAN STEELE
[2017-03-25 05:07] LABS: #Eosinphils 0.2 thou/uL (0.0-0.7); #Lymphocytes 0.9 thou/uL (1.20-3.40); #Monocytes 0.5 thou/uL (0.11-0.59); %Basophils 0.1 % (0.0-1.0); %Eosinophils 3.2 % (0.0-10.0); %Lymphocytes 16.7 % (21.0-51.0); %Monocytes 8.4 % (0.0-10.0); %Neutrophils 71.6 % (42.0-75.0); Hemoglobin 10.8 g/dL (12.0-16.0); Mean Corpuscular HGB CONC 32.4 g/dL (32.0-36.0); Mean Corpuscular Hemoglobin 31.2 pg (27.0-31.0); Mean Corpuscular Volume 96.4 fl (81.0-99.0); Mean Platelet Volume 8.5 fL (7.4-10.4); Platelet Count 122 thou/uL (130-400); RBC Distribution Width 12.3 % (11.5-14.5); Red Blood Cell (RBC) Count 3.46 mill/uL (4.20-5.40); White Blood Cell (WBC) Count 5.6 thou/uL (4.8-10.8)
[2017-03-25 05:21] LABS: ALT (SGPT) 80 U/L (8-55); AST (SGOT) 103 U/L (5-34); Albumin 2.9 g/dL (3.4-4.8); Alkaline Phosphatase 194 U/L (40-150); Anion Gap 10 mmol/L (10-20); BUN (Urea Nitrogen) 15 mg/dL (9.8-20.1); Bilirubin, Total 4.4 mg/dL (0.2-1.2); Calc. Creatinine Clearance 35 mL/min (70-130); Carbon Dioxide 28 mmol/L (23-31); Chloride 108 mmol/L (98-107); Estimated GFR-MDRD 41; Globulin 3.1 g/dL (2.4-3.5); Glucose 134 mg/dL (83-110); Magnesium 1.9 mg/dL (1.6-2.6); Potassium 3.8 mmol/L (3.5-5.1); Sodium 142 mmol/L (136-145)
[2017-03-25 05:23] LABS: ALT (SGPT) 75 U/L (8-55); AST (SGOT) 103 U/L (5-34); Albumin 2.8 g/dL (3.4-4.8); Alkaline Phosphatase 191 U/L (40-150); Bilirubin, Direct 3.5 mg/dL (0.1-0.3); Bilirubin, Total 4.4 mg/dL (0.2-1.2); Protein, Total 5.9 g/dL (6.0-8.3)
[2017-03-25] MEDS: Piperacillin/Tazobactam 2.25 GM in Sodium Chloride 0.9% 100 ML IVPB SCH ×3 (05:49→20:41)
[2017-03-25] MEDS: Sodium Chloride 0.9% 1,000 ML IV SCH ×2 (05:49→14:25)
[2017-03-25] MEDS: Famotidine/PF 20 mg/2ml Vial SLOW IVP SCH ×2 (09:16→20:41)
[2017-03-25] MEDS: Flecainide 50 MG TAB PO SCH ×2 (09:16→20:42)
--- NOTE | 2017-03-25 11:29 | PDOC.PN ---
- Subjective Encounter Start Date: 03/25/17 Encounter Start Time: 09:00 Pt seen by GI and surgery. for EGD later today and then lap anna with pebbles. no F/c, no n/v/D/c, no abd pain, no cough or sputum. 10 point ROS performed and neg for all systems except as per HPI - Objective Resuscitation Status: Resuscitation Status FULL:Full Resuscitation MAR Reviewed: Yes Vital Signs & Weight: Vital Signs (12 hours) Temp Pulse Resp BP Pulse Ox 03/25/17 08:00 98.6 F 73 16 189/71 H 92 L 03/25/17 04:00 97.5 F L 69 16 168/71 H 95 03/25/17 00:00 97.9 F 68 18 168/68 H 97 Weight Weight 144 lb 11.2 oz I&O: 03/24/17 03/25/17 03/26/17 06:59 06:59 06:59 Intake Total 1580 Balance 1580 Result Diagrams: 03/25/17 04:52 03/25/17 04:52 Additional Labs: Accuchecks 03/25/17 03/25/17 03/24/17 04:35 00:39 21:07 POC Glucose 125 H 165 H 208 H 03/24/17 03/24/17 15:50 12:04 POC Glucose 119 H 180 H Radiology Reviewed by me: Yes Phys Exam - Physical Examination Constitutional: NAD HEENT: PERRLA, moist MMs, sclera anicteric, oral pharynx no lesions Neck: no nodes, no JVD, supple, full ROM Respiratory: no wheezing, no rales, no rhonchi, clear to auscultation bilateral Cardiovascular: RRR, no significant murmur, no rub Gastrointestinal: soft, non-tender, no distention, positive bowel sounds Musculoskeletal: no edema, pulses present Neurological: non-focal, normal sensation, moves all 4 limbs Lymphatic: no nodes Psychiatric: normal affect, A&O x 3 Skin: no rash, normal turgor, cap refill <2 seconds Dx/Plan (1) Acute cholecystitis due to biliary calculus Code(s): K80.00 - CALCULUS OF GALLBLADDER W ACUTE CHOLECYST W/O OBSTRUCTION Status: Acute Comment: EGD then lap anna. (2) HTN (hypertension) Code(s): I10 - ESSENTIAL (PRIMARY) HYPERTENSION Status: Chronic Qualifiers: Hypertension type: essential hypertension Qualified Code(s): I10 - Essential (primary) hypertension (3) CARLOS (acute kidney injury) Code(s): N17.9 - ACUTE KIDNEY FAILURE, UNSPECIFIED Status: Resolved Comment : better this AM after hydration (4) Dyslipidemia Code(s): E78.5 - HYPERLIPIDEMIA, UNSPECIFIED Status: Chronic (5) IPF (idiopathic pulmonary fibrosis) Code(s): J84.112 - IDIOPATHIC PULMONARY FIBROSIS Status: Chronic (6) Chest pain Code(s): R07.9 - CHEST PAIN, UNSPECIFIED Status: Acute Qualifiers: Comment: suspect deman ischemia, Slight trop elevation. cArdiology ocnsulted, Echo being down now - Plan * .
[2017-03-25] MEDS ORDERED: Iothalamate Meglumine 60% 50 ML VIAL FS ONE ×2 (11:44→11:47)
[2017-03-25] MEDS ORDERED: Bupivacaine 0.25% HCL 30 ML VIAL ONE (11:47)
[2017-03-25] MEDS ORDERED: Lidocaine 2% w/Epinephrine 1:200K 20 ML VIAL ONE (11:47)
[2017-03-25] MEDS ORDERED: Indomethacin 50 MG SUPP ONE (12:04)
[2017-03-25] MEDS ORDERED: Dexamethasone 20 MG/5 ML VIAL ONE (12:12)
[2017-03-25] MEDS ORDERED: Succinylcholine Chloride 20 MG/ML 10 ml SYRINGE FS ONE (12:12)
[2017-03-25] MEDS ORDERED: Propofol 200 MG/20 ML VIAL ONE (12:12)
[2017-03-25] MEDS ORDERED: Glycopyrrolate 0.2 MG/ML 5 ML SYRINGE ONE (12:12)
[2017-03-25] MEDS ORDERED: Lidocaine 1% PF 5 ML VIAL ONE (12:12)
[2017-03-25] MEDS ORDERED: PHENYLEPHRINE-NS 100 MCG/ML 10 ML SYRINGE ONE (12:12)
[2017-03-25] MEDS ORDERED: Ondansetron HCl/PF 4 MG/2 ML Vial ONE (12:12)
[2017-03-25] MEDS ORDERED: Fentanyl 100 MCG/2 ML VIAL ONE ×2 (12:23)
[2017-03-25] MEDS ORDERED: HYDROmorphone 0.5 MG/0.5 ML SYRINGE ONE (12:23)
[2017-03-25 13:18] VITALS: BMI 25.6
--- NOTE | 2017-03-25 13:36 | OP ---
DATE OF PROCEDURE: 03/25/2017 GI ENDOSCOPY NOTE SURGEON: Guerrero Harris M.D. DRAW FRAME RUNNER SURGEON: None. PROCEDURES: Endoscopic retrograde cholangiopancreatography with biliary sphincterotomy and stone ext raction. INDICATIONS: 1. Elevated liver function tests. 2. Dilated common bile duct, highly suggestive of choledocholithiasis. MEDICATIONS: 1. See anesthesia record. 2. Indomethacin 100 mg per rectum. FINDINGS: After discussion of the risks, benefits and alternatives of the procedure, informed consen t was obtained and witnessed. Pre-endoscopic cardiopulmonary examination was satisfactory. Timeout was performed before sedation was achieved. Sedation was achieved with anesthesia assistance in the endoscopy unit. The patient was placed in a semi-prone position on the fluoroscopy table, endotrache ally intubated. A Pentax adult side-viewing duodenoscope was advanced through the mouth beyond the e sophagus and stomach and into the second portion of the duodenum. The ampulla was brought into view with the endoscope in the short position. The ampulla was small in size, but otherwise appeared norm al. There was a very small periampullary diverticulum. Using a triple lumen dome, tip sphincterotom e and 0.035 guidewire, we selectively cannulated the common bile duct. The wire was passed up into t he right intrahepatic system. A cholangiogram was then performed. This demonstrated an ill-defined filling defect in the mid common bile duct. The bile duct was not grossly dilated. The cystic duct and gallbladder did fill with contrast. At this point, the sphincterotome was withdrawn to the level of the ampulla and a biliary sphincterotomy was performed. The sphincterotome was then removed leav ing the guidewire in place. A 9 mm extraction balloon was then passed into the bile duct and multipl e sweeps were made. In this fashion, we extracted moderate amount of sludge from the common bile leonard t as well as one single large green pigmented stone. Occlusion cholangiogram demonstrated no persist ent filling defects in the common bile duct. At this point, one final sweep was made of the common b ile duct to sweep out excess contrast. The working apparatus was then withdrawn. The endoscope was then completely withdrawn suctioning out excess air and fluid and the procedure was complete. Postpr ocedure fluoroscopic images demonstrated no retroperitoneal or subdiaphragmatic free air. The patien t tolerated the procedure well. There were no immediate postprocedure complications. She was subseq uently wheeled to the operating room for planned cholecystectomy. IMPRESSION: Choledocholithiasis, now status post successful endoscopic retrograde cholangiopancreato graphy with biliary sphincterotomy and balloon extraction of a single green pigmented gallstones and sludge from the common bile duct. RECOMMENDATIONS: 1. Proceed with cholecystectomy as planned. 2. Monitor for potential post-ERCP complications including pancreatitis.
--- NOTE | 2017-03-25 13:54 | RAD ---
ERCP: Date: 03/25/17 HISTORY: Intraprocedural fluoroscopy provided for ERCP. ERCP was performed by engineer system administrator. FINDINGS: Retrograde opacification of the common bile duct demonstrates a normal caliber common bile duct. Cent ral intrahepatic biliary system is unremarkable. There does not appear to be any contrast opacificati on of the gallbladder. IMPRESSION: Fluoroscopy as above. POS: PATY
[2017-03-25] MEDS ORDERED: traMADol HCl 50 MG TAB PO PRN (15:26)
[2017-03-25] MEDS ORDERED: Morphine 5 MG/ML SYRINGE SLOW IVP PRN (15:26)
[2017-03-25] MEDS ORDERED: Ondansetron HCl/PF 4 MG/2 ML Vial IVP PRN ×2 (15:50→15:55)
[2017-03-25] MEDS ORDERED: Promethazine HCl 25 MG/ML VIAL SLOW IVP PRN ×2 (15:50→15:55)
[2017-03-25] MEDS ORDERED: HYDROmorphone 2 MG/ML VIAL SLOW IVP PRN (15:50)
[2017-03-25] MEDS ORDERED: Morphine Sulfate 2 MG/ML SYRINGE SLOW IVP PRN (15:50)
[2017-03-25] MEDS ORDERED: Promethazine HCl 25 MG/ML VIAL IM PRN ×2 (15:50→15:55)
--- NOTE | 2017-03-25 17:24 | OP ---
DATE OF PROCEDURE: 03/25/2017 PREOPERATIVE DIAGNOSES: 1. Acute cholecystitis and cholelithiasis. 2. Choledocholithiasis, status post ERCP. 3. Suspected, liver cirrhosis. PROCEDURES PERFORMED: 1. Laparoscopic cholecystectomy. 2. Joe-cut liver biopsy. SURGEON: Dr. Ben Parrish. ANESTHESIA: General endotracheal. ESTIMATED BLOOD LOSS: 20 mL FLUIDS GIVEN: 800 mL crystalloids. SPONGE AND INSTRUMENT COUNT: Certified as correct x2. COMPLICATIONS: None apparent at time of operation. INDICATIONS FOR PROCEDURE: This is an 86-year-old woman who presented with epigastric right upper qu adrant abdominal pain. LFTs were elevated. HIDA scan was obtained which revealed nonopacified gallb ladder. The patient underwent ERCP earlier today with common bile duct stone extraction. Following ERCP, patient was brought to the operating room for laparoscopic cholecystectomy. DESCRIPTION OF PROCEDURE: Informed consent obtained from the patient prior to ERCP. Patient was bro ught to the operating room after ERCP, placed in supine position. General anesthesia was initiated by Anesthesia Department following which a Dee catheter was placed to bedside drain. Orogastric tube inserted and placed to wall suction. Abdomen was sterilely prepp ed and draped in the usual fashion. The skin below the umbilicus was infiltrated with 0.25% Marcaine with epinephrine. A small curvilinear infraumbilical incision was made using an 11 scalpel. Umbili magaly stalk was grasped with Matt's and elevated. Veress needle was introduced through this incision and advanced into the peritoneal cavity through which the abdomen was insufflated with 2.5 liters of CO2 gas. Intra-abdominal pressure was noted at negative 2 mmHg. Following abdominal insufflation, Veress needle was removed. A 5-mm trocar was introduced using a Visiport under laparoscopy. Laparos copy confirmed proper placement and no injuries to underlying structures. Additional laparoscopy rev eals gallbladder in the usual anatomic location partially encased by omental adhesions. Under direct laparoscopy, a 12-mm epigastric and two 5-mm right-lateral subcostal ports were placed after the ove rlying skin was infiltrated with 0.25% Marcaine with epinephrine and appropriate incision was made. The patient was then placed in the reverse Trendelenburg position, rotated to her left. I introduced a Prestige grasper through the right lateral subcostal port grasping the fundus of the gallbladder w hich was elevated cephalad. [place] dissector with cautery was then used to take down omental adhes ions from the gallbladder with good hemostasis. A second Prestige grasper was introduced through the right medial subcostal port grasping the Perry's pouch which was retracted laterally. Anterior co ursing cystic artery was dissected free from surrounding structures and divided between clips. Two c lips were applied proximally and one clip at the junction of the cystic artery and gallbladder. The cystic duct was also dissected free from surrounding structures and divided between clips in a simila r fashion. Gallbladder itself was removed from the liver bed using cautery with good hemostasis. Th e gallbladder was delivered of the abdominal cavity using an EndoCatch. Liver was noted to be quite cirrhotic appearing. Decision was made therefore to proceed with a Joe-c ut liver biopsy. To achieve the Joe-cut biopsy, forceps was introduced through the right upper quadr ant through a stab incision made with an 11 scalpel. Liver tissues were obtained and passed off the operative field following transmission to pathology. The biopsy site was cauterized to achieve hemos tasis. Finding no other pathology, laparoscopy was terminated. Fascia of the epigastric port site w as closed using 0 Vicryl suture and Endo closure device under laparoscopy. The abdomen was desufflat ed. All ports and instruments removed and accounted for. Skin incision was then closed using 4-0 Mo nocryl suture in subcuticular fashion. Dermabond was applied over the incisions following closure. The patient tolerated the operation without any apparent complication and was returned to recovery ro in satisfactory condition.
[2017-03-25] MEDS ORDERED: Labetalol 100 MG/20 ML MDV SLOW IVP PRN (18:28)
[2017-03-25] MEDS: traMADol HCl 50 MG TAB PO PRN (19:31)
[2017-03-25] MEDS ORDERED: Labetalol HCl 100 MG/20 ML VIAL SLOW IVP PRN (19:42)
[2017-03-25] MEDS: Levothyroxine Sodium 50 MCG TAB PO SCH (20:41)
--- NOTE | 2017-03-25 22:43 | PRG ---
DATE OF SERVICE: 03/25/2017 SUBJECTIVE: This is an 86-year-old female status post postop day #0 for laparoscopic cholecystectomy and ERCP. The patient is doing well. She did complain of some mild pain and nausea. She is tolera ting clears at this time. OBJECTIVE: VITAL SIGNS: Overall stable and reviewed. ASSESSMENT AND PLAN: Continue care as noted in the daily progress note. Continue to monitor. We wi ll reassess in a.m. Discharge disposition is pending.
[2017-03-26] MEDS: traMADol HCl 50 MG TAB PO PRN (00:31)
[2017-03-26] MEDS: Sodium Chloride 0.9% 1,000 ML IV SCH (04:41)
[2017-03-26] MEDS: Piperacillin/Tazobactam 2.25 GM in Sodium Chloride 0.9% 100 ML IVPB SCH ×2 (05:13→14:52)
[2017-03-26 05:27] LABS: #Lymphocytes 0.4 thou/uL (1.20-3.40); #Monocytes 0.4 thou/uL (0.11-0.59); #Neutrophils 9.8 thou/uL (1.40-6.50); %Basophils 0.1 % (0.0-1.0); %Eosinophils 0.1 % (0.0-10.0); %Lymphocytes 3.5 % (21.0-51.0); %Monocytes 3.8 % (0.0-10.0); %Neutrophils 92.5 % (42.0-75.0); Hemoglobin 11.1 g/dL (12.0-16.0); Mean Corpuscular HGB CONC 31.2 g/dL (32.0-36.0); Mean Corpuscular Volume 99.2 fl (81.0-99.0); Mean Platelet Volume 8.8 fL (7.4-10.4); Platelet Count 140 thou/uL (130-400); RBC Distribution Width 12.6 % (11.5-14.5); Red Blood Cell (RBC) Count 3.57 mill/uL (4.20-5.40); White Blood Cell (WBC) Count 10.6 thou/uL (4.8-10.8)
[2017-03-26 05:41] LABS: Anion Gap 15 mmol/L (10-20); BUN (Urea Nitrogen) 20 mg/dL (9.8-20.1); Calc. Creatinine Clearance 36 mL/min (70-130); Calcium 8.9 mg/dL (7.8-10.44); Carbon Dioxide 19 mmol/L (23-31); Chloride 107 mmol/L (98-107); Estimated GFR-MDRD 41; Glucose 390 mg/dL (83-110); Lipase 15 U/L (8-78); Magnesium 1.9 mg/dL (1.6-2.6); Potassium 4.5 mmol/L (3.5-5.1); Sodium 136 mmol/L (136-145)
[2017-03-26 05:44] LABS: ALT (SGPT) 103 U/L (8-55); AST (SGOT) 136 U/L (5-34); Albumin 2.9 g/dL (3.4-4.8); Alkaline Phosphatase 241 U/L (40-150); Bilirubin, Direct 4.2 mg/dL (0.1-0.3); Bilirubin, Total 5.3 mg/dL (0.2-1.2); Protein, Total 6.2 g/dL (6.0-8.3)
[2017-03-26] MEDS ORDERED: Dextrose 5% in Water 1,000 ML IV PRN (06:21)
[2017-03-26] MEDS ORDERED: Insulin Regular 300 UNITS/3 ML VIAL SC PRN ×2 (06:21→11:54)
[2017-03-26] MEDS ORDERED: Dextrose 50% Abboject 50 ML SYRINGE SLOW IVP PRN (06:21)
--- NOTE | 2017-03-26 08:23 | PRG ---
DATE OF SERVICE: 03/26/2017 SUBJECTIVE: Ms. Carballo is doing really well this morning following cholecystectomy. She is eating a regular diet and tolerating this well. She endorses no nausea, only minimal abdominal discomfort. S he has been hemodynamically stable and afebrile. OBJECTIVE: VITAL SIGNS: Temperature 98, pulse 68, blood pressure 148/80, 96% oxygen saturation on room air. GENERAL: No acute distress, slightly jaundiced. HEART: Regular rate and rhythm. LUNGS: Clear to auscultation bilaterally. ABDOMEN: Bowel sounds are present, soft, mild diffuse tenderness to palpation with no guarding or re bound tenderness. EXTREMITIES: No peripheral edema. LABORATORY STUDIES: WBC 10.6, hemoglobin 11.1, platelets 140. Sodium 136, potassium 4.5, BUN 20, cr eatinine 1.25, glucose 379, total bilirubin bumped up a little to 5.3, direct bilirubin 4.2, alkaline phosphatase 241, AST 136, ALT 103, lipase is normal at 15. ASSESSMENT AND PLAN: 1. Choledocholithiasis, status post successful endoscopic retrograde cholangiopancreatography with s tone extraction and sphincterotomy yesterday. 2. Cholecystitis, status post laparoscopic cholecystectomy yesterday following the endoscopic retrog rade cholangiopancreatography. 3. Possible cirrhosis. I appreciate Dr. Parrish's assistance in obtaining a liver biopsy intraoperati vely yesterday. The patient will follow up with Dr. Hilton in the outpatient setting. 4. Elevated liver function tests, no downtrend yet, but the patient is doing well postoperatively wi th no persistent biliary dilation. No evidence of post-endoscopic retrograde cholangiopancreatograph y pancreatitis. Disposition per surgical recommendations. Dr. Hilton will follow up with the patient in the outpatient setting in the next few weeks. GI will sign off, but please call back any time with questions or concerns.
[2017-03-26 08:35] LABS: Hemoglobin A1c 6.9 % (4.0-6.0)
[2017-03-26] MEDS ORDERED: Apixaban 5 MG TAB PO SCH (09:00)
[2017-03-26] MEDS ORDERED: Furosemide 40 MG TAB PO SCH (09:00)
[2017-03-26] MEDS ORDERED: Valsartan 80 MG TAB PO SCH (09:00)
[2017-03-26] MEDS ORDERED: Atorvastatin Calcium 10 MG TAB PO SCH (09:00)
[2017-03-26] MEDS: Flecainide 50 MG TAB PO SCH (09:39)
[2017-03-26] MEDS: Famotidine/PF 20 mg/2ml Vial SLOW IVP SCH (09:39)
[2017-03-26] MEDS ORDERED: Enoxaparin Sodium 40 MG/0.4 ML SYRINGE SC SCH (09:45)
--- NOTE | 2017-03-26 09:47 | PRG ---
DATE OF SERVICE: 03/26/2017 SUBJECTIVE: Ms. Carballo is doing well. She is awake and alert. No complaints. OBJECTIVE: VITAL SIGNS: Blood pressure 155/80, pulse 70 and it is regular. LUNGS: Clear. CARDIAC: Normal S1, S2. ASSESSMENT: 1. Status post cholecystectomy and liver biopsy. 2. Liver function tests remain elevated. PLAN: 1. We would hold off on apixaban for a couple of days in view of the liver biopsy. 2. We will give her 1 dose of enoxaparin for deep venous thrombosis, prevention dose today.
[2017-03-26 12:02] VITALS: BP 143/71; TEMP 97.6
--- NOTE | 2017-03-26 12:09 | PDOC.PN ---
- Subjective Encounter Start Date: 03/26/17 Encounter Start Time: 08:55 Pt did well with procedures. ERCP with sphincertotomy, stone removal, and then lap anna with IOC. Liver bx obtained due to cirrhotic-appreaign liver. No F/C, miguel breakfast, has been walking around her room without problems No F/C, no N/V/D/c, no CP or sOB. 10 point ROs perfomred and neg for all systems except as above - Objective Resuscitation Status: Resuscitation Status FULL:Full Resuscitation MAR Reviewed: Yes Vital Signs & Weight: Vital Signs (12 hours) Temp Pulse Resp BP Pulse Ox 03/26/17 11:08 97.6 F 71 16 143/71 H 97 03/26/17 07:34 97.7 F 77 16 155/80 H 94 L 03/26/17 04:00 98 F 68 16 148/80 H 96 Weight Admit Weight 145 lb 12.8 oz Weight 152 lb 2 oz I&O: 03/25/17 03/26/17 03/27/17 06:59 06:59 06:59 Intake Total 1580 0 Balance 1580 0 Result Diagrams: 03/26/17 04:44 03/26/17 04:44 Additional Labs: Accuchecks 03/26/17 03/26/17 03/25/17 11:09 06:03 20:38 POC Glucose 430 H 379 H 187 H Radiology Reviewed by me: Yes EKG Reviewed by me: Yes Phys Exam - Physical Examination Constitutional: NAD HEENT: PERRLA, moist MMs, sclera anicteric, oral pharynx no lesions Neck: no nodes, no JVD, supple, full ROM Respiratory: no wheezing, no rales, no rhonchi, clear to auscultation bilateral Cardiovascular: RRR, no significant murmur, no rub Gastrointestinal: soft, non-tender, no distention, positive bowel sounds Musculoskeletal: no edema, pulses present Neurological: non-focal, normal sensation, moves all 4 limbs Lymphatic: no nodes Psychiatric: normal affect, A&O x 3 Skin: no rash, normal turgor, cap refill <2 seconds Deviation from normal: incisions C/D/I Dx/Plan (1) Acute cholecystitis due to biliary calculus Code(s): K80.00 - CALCULUS OF GALLBLADDER W ACUTE CHOLECYST W/O OBSTRUCTION Status: Acute Comment: EGD then lap anna successful. POD 1. d/C by trauma team (2) HTN (hypertension) Code(s): I10 - ESSENTIAL (PRIMARY) HYPERTENSION Status: Chronic Qualifiers: Hypertension type: essential hypertension Qualified Code(s): I10 - Essential (primary) hypertension (3) CARLOS (acute kidney injury) Code(s): N17.9 - ACUTE KIDNEY FAILURE, UNSPECIFIED Status: Resolved Comment : better after hydration (4) Dyslipidemia Code(s): E78.5 - HYPERLIPIDEMIA, UNSPECIFIED Status: Chronic (5) IPF (idiopathic pulmonary fibrosis) Code(s): J84.112 - IDIOPATHIC PULMONARY FIBROSIS Status: Chronic (6) Chest pain Code(s): R07.9 - CHEST PAIN, UNSPECIFIED Status: Resolved Qualifiers: Comment: suspect demand ischemia, Slight trop elevation. Cardiology consulted, echo unremarkable. - Plan * . home today per Surgery. resume home medications on dischrge, follow up wit PCP in a week, with GI as needed, with Dr Parrish in 1-2 weeks
[2017-03-26] MEDS ORDERED: Famotidine 20 MG TAB PO SCH (21:00)
--- NOTE | 2017-03-26 23:11 | DIS ---
ADMITTING PHYSICIAN: Dr. Velez. DISCHARGING PHYSICIAN: Dr. Ben Parrish. REASON FOR HOSPITALIZATION: Abdominal pain with nonbilious emesis. HOSPITAL DIAGNOSES: 1. Acute cholecystitis. 2. Choledocholithiasis. 3. Laparoscopic cholecystectomy. 4. Joe-cut liver biopsy. SURGEON: Dr. Ben Parrish. DATE OF PROCEDURE: 03/25/2017. DISCHARGE CONDITION: Good. DISPOSITION: Discharged to home. DISCHARGE MEDICATIONS: Acetaminophen p.r.n., Eliquis 5 mg p.o. b.i.d. hold for [address] Varghese 's recommendation, aspirin 81 mg daily, vitamin D 1000 units daily, flecainide 50 mg p.o. b.i.d., fur osemide 40 mg p.o. daily, levothyroxine 50 mcg p.o. at bedtime, metoprolol 25 mg p.o. daily, Zofran 4 mg p.o. q.6 hours p.r.n., simvastatin 20 mg p.o. daily, tramadol 50 mg p.o. q.6 hours, valsartan 160 mg p.o. daily. ACTIVITY ORDERS: Activity as tolerated. THERAPY ORDERS: None. DIETARY INSTRUCTIONS: Patient may resume a regular diet. FOLLOWUP: Follow up with Dr. Parrish in 1 week with repeat LFTs and CBC. BRIEF HISTORY OF HOSPITALIZATION: Ms. Carballo is an 86-year-old female who presented to the ER with ab dominal pain. Workup in the ED identified acute cholecystitis and likely choledocholithiasis. She w as admitted to the hospital by Hospital Medicine Service. GI was consulted. Dr. Parrish, trauma surge ry was consulted. Ms. Carballo was taken to the operating room for ERCP and subsequent laparoscopic cho lecystectomy. Please refer to operative note on 03/25/2017 for complete details. On postop day #1, she was tolerating a regular diet. She was ambulatory without assistance. Bowel function had return ed. LFTs were still noted to be elevated; however, after lengthy discussion between patient and Dr. Parrish, it was decided that patient could safely be discharged home. She was given strict return prec autions. She will follow up with Dr. Parrish in 1 week with repeat LFTs. She is aware of that if she should develop increasing abdominal pain, nausea, vomiting, diarrhea, fever, or chills that she shoul d return to the ER or notify Dr. Parrish or her doctor. Discussion was had with Dr. Hudson, [facility] prior to discharge. Patient is to resume home medications. Per Dr. Varghese's recommendations , she will continue Eliquis in 2 days. She is to resume her regular diabetic medications when she re turned home. She denied questions. The patient was seen and examined with Dr. Parrish. This is Tri Brown NP dictating a discharge summary for Dr. Ben Parrish.
[2017-03-27] MEDS ORDERED: Enoxaparin Sodium 40 MG/0.4 ML SYRINGE SC SCH (09:00)
[2017-03-28] MEDS ORDERED: Apixaban 5 MG TAB PO SCH (09:00)
== END 2017-03-26 16:00 | disposition home or self-care (01) | DRG 418 ==
LOC: ERS 18:25 → ERHOLD 23:22 → 2SE 03-24 05:42 → SJJU 03-25 16:38
PROVIDERS: ADMIT Internal Medicine; ATTEND Internal Medicine
PROC: 0FT44ZZ Resection of Gallbladder, Percutaneous Endoscopic Approach (ICD-10-PCS; principal; 2017-03-25)
PROC: 0FC98ZZ Extirpation of Matter from Common Bile Duct, Via Natural or Artificial Opening Endoscopic (ICD-10-PCS; 2017-03-25)
PROC: BF130ZZ Fluoroscopy of Gallbladder and Bile Ducts using High Osmolar Contrast (ICD-10-PCS; 2017-03-25)
PROC: 0FB03ZX Excision of Liver, Percutaneous Approach, Diagnostic (ICD-10-PCS; 2017-03-25)
DX: K80.42 Calculus of bile duct with acute cholecystitis without obstruction (principal); N17.9 Acute kidney failure, unspecified; I24.8 Other forms of acute ischemic heart disease; I48.0 Paroxysmal atrial fibrillation; K76.9 Liver disease, unspecified; J84.112 Idiopathic pulmonary fibrosis; E11.9 Type 2 diabetes mellitus without complications; I48.2 Chronic atrial fibrillation; Z79.02 Long term (current) use of antithrombotics/antiplatelets; E03.9 Hypothyroidism, unspecified; I10 Essential (primary) hypertension; E78.5 Hyperlipidemia, unspecified
CPT/HCPCS: 36415; 36416; 71045; 74177; 74330; 76705; 78227; 80048; 80053; 80076; 81003; 81015; 82553; 83036; 83605; 83690; 83735; 84100; 84484; 85025; 85610; 85730; 87040; 88304; 88307; 88313; 93005; 93010; 93306; 96365; 96375; A9537; J1100; J1170; J1650; J1815; J2001; J2270; J2405; J2543; J2704; J3010; J7050; Q9961; S0020; S0028

== ENCOUNTER 2017-07-29 09:04 | Emergency (ER) | payer MEDICARE, OTHER | END 2017-07-29 10:53 | disposition home or self-care (01) | LOC: ERS 09:04 | DX: I83.893 Varicose veins of bilateral lower extremities with other complications (principal); M79.81 Nontraumatic hematoma of soft tissue; X19.XXXA Contact with other heat and hot substances, initial encounter | CPT/HCPCS: 99283 ==

== ENCOUNTER 2017-08-07 16:20 | Emergency (ER) | payer MEDICARE, OTHER | END 2017-08-07 17:27 | disposition home or self-care (01) | LOC: ERS 16:20 | DX: L03.115 Cellulitis of right lower limb (principal); I83.891 Varicose veins of right lower extremity with other complications; E11.9 Type 2 diabetes mellitus without complications; E03.9 Hypothyroidism, unspecified; E78.5 Hyperlipidemia, unspecified; I10 Essential (primary) hypertension; F32.9 Major depressive disorder, single episode, unspecified; Z79.899 Other long term (current) drug therapy; Z79.82 Long term (current) use of aspirin | CPT/HCPCS: 99283 ==

== ENCOUNTER 2017-08-19 09:16 | Outpatient (CLI) | payer MEDICARE, OTHER | END 2017-08-19 09:17 | disposition home or self-care (01) | LOC: BICRAD 09:16 | PROVIDERS: ATTEND Podiatrist | DX: S92.309A Fracture of unspecified metatarsal bone(s), unspecified foot, initial encounter for closed fracture (principal) ==

== ENCOUNTER 2017-08-19 09:42 | Outpatient (CLI) | payer MEDICARE, OTHER | END 2017-08-19 09:43 | disposition home or self-care (01) | LOC: BICMAMMO 09:42 | PROVIDERS: ATTEND Internal Medicine | DX: Z12.31 Encounter for screening mammogram for malignant neoplasm of breast (principal) | CPT/HCPCS: 77063; 77067 ==

== ENCOUNTER 2018-08-23 09:48 | Outpatient (CLI) | payer MEDICARE, OTHER ==
--- NOTE | 2018-08-23 10:34 | MMO ---
Bilateral MAMMO Bilat Screen [facility]. CLINICAL HISTORY: Patient is 88 years old and is seen for screening. The patient has no family history of breast cancer. The patient has no personal history of cancer. The patient has a history of left Stereotatic Biopsy in 2003 - benign. VIEWS: The views performed were: bilateral craniocaudal with tomosynthesis; bilateral mediolateral oblique with tomosynthesis; and bilateral exaggerated craniocaudal. FILMS COMPARED: The present examination has been compared to a prior imaging study performed at [facility] on 08/19/2017. MAMMOGRAM FINDINGS: The breasts are heterogeneously dense, which could obscure a lesion on mammography. There are stable benign appearing calcifications seen in both breasts. There are also vascular calcifications. There are no suspicious masses, suspicious calcifications, or new areas of architectural distortion. IMPRESSION: THERE IS NO MAMMOGRAPHIC EVIDENCE OF MALIGNANCY. A ROUTINE FOLLOW-UP MAMMOGRAM IN 1 YEAR IS RECOMMENDED. THE RESULTS OF THIS EXAM WERE SENT TO THE PATIENT. ACR BI-RADS Category 2 - Benign finding MAMMOGRAPHY NOTE: 1. A negative mammogram report should not delay a biopsy if a dominant of clinically suspicious mass is present. 2. Approximately 10% to 15% of breast cancers are not detected by mammography. 3. Adenosis and dense breasts may obscure an underlying neoplasm.
== END 2018-08-23 09:49 | disposition home or self-care (01) ==
LOC: BICMAMMO 09:48
PROVIDERS: ATTEND Internal Medicine
DX: Z12.31 Encounter for screening mammogram for malignant neoplasm of breast (principal); Z91.89 Other specified personal risk factors, not elsewhere classified
CPT/HCPCS: 77063; 77067

== ENCOUNTER 2019-02-16 16:42 | Emergency (ER) | payer MEDICARE, OTHER ==
--- NOTE | 2019-02-16 17:32 | CT ---
Exam: CT brain PROVIDED CLINICAL HISTORY: Fall, taking blood thinners COMPARISON: None FINDINGS: The ventricular system is normal in size and morphology. No evidence for intracranial hemorrhage or mass effect. The extracranial soft tissues and osseous structures demonstrate no evidence for an acute abnormality. IMPRESSION: No evidence for intracranial hemorrhage or mass effect.
--- NOTE | 2019-02-16 17:35 | CT ---
EXAM: CT cervical spine PROVIDED CLINICAL HISTORY: Fall COMPARISON: None FINDINGS: No evidence for fracture or traumatic subluxation. No prevertebral soft tissue swelling apparent. Vi sualized lung apices appear clear. IMPRESSION: No evidence for fracture or traumatic subluxation.
--- NOTE | 2019-02-16 17:37 | CT ---
EXAM: CT lumbar spine PROVIDED CLINICAL HISTORY: Fall with pain COMPARISON: None FINDINGS: No evidence for acute fracture or traumatic subluxation. Vascular calcifications are seen. Prominent disc degenerative changes at L4-5. Remote compression deformity involving superior endplate of L3. Cystic structure involving the inferior pole of the left kidney is partially visualized and appear si milar to 03/23/2017 CT. IMPRESSION: No evidence for fracture or traumatic subluxation.
--- NOTE | 2019-02-16 18:01 | RAD ---
EXAM: XR Pelvis AP STANDARD PROVIDED CLINICAL HISTORY: Pain FINDINGS: There is no evidence for fracture or other acute osseous abnormality. Alignment appears anatomic. Venessa nt spaces appear preserved. IMPRESSION: No evidence for an acute osseous abnormality. If there is persistent clinical concern, conservative m anagement and follow-up imaging advised.
== END 2019-02-16 18:46 | disposition home or self-care (01) ==
LOC: ERS 16:42
DX: S30.0XXA Contusion of lower back and pelvis, initial encounter (principal); S09.90XA Unspecified injury of head, initial encounter; R07.81 Pleurodynia; M25.551 Pain in right hip; M25.552 Pain in left hip; M19.90 Unspecified osteoarthritis, unspecified site; E11.9 Type 2 diabetes mellitus without complications; E03.9 Hypothyroidism, unspecified; E78.5 Hyperlipidemia, unspecified; E78.00 Pure hypercholesterolemia, unspecified; F32.9 Major depressive disorder, single episode, unspecified; I10 Essential (primary) hypertension; Z79.899 Other long term (current) drug therapy; Z79.01 Long term (current) use of anticoagulants; Z79.82 Long term (current) use of aspirin; W22.8XXA Striking against or struck by other objects, initial encounter
CPT/HCPCS: 70450; 72125; 72131; 72170; L0120

== ENCOUNTER 2019-08-29 09:46 | Outpatient (CLI) | payer MEDICARE, OTHER ==
--- NOTE | 2019-08-29 10:50 | RAD ---
RIGHT TOES: HISTORY: Pain and swelling in great toe region. FINDINGS: Bones appear somewhat demineralized. I do not see any definite bony erosive change that would defini tely suggest gout. There is only some tiny cystic change in the metatarsal head. There are some mil d arthritic changes noted. 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 POS: MIKA
--- NOTE | 2019-08-29 11:41 | MMO ---
Bilateral MAMMO Bilat Screen [facility]. CLINICAL HISTORY: Patient is 89 years old and is seen for screening. The patient has no family history of breast cancer. The patient has no personal history of cancer. The patient has a history of left Stereotatic Biopsy in 2003 - benign. VIEWS: The views performed were: bilateral craniocaudal with tomosynthesis and bilateral mediolateral oblique with tomosynthesis. FILMS COMPARED: The present examination has been compared to prior imaging studies performed at [facility] on 08/19/2017 and 08/23/2018. This study has been interpreted with the assistance of computer-aided detection. MAMMOGRAM FINDINGS: The breasts are heterogeneously dense, which could obscure a lesion on mammography. Benign calcifications are noted bilaterally. There are stable left post-operative changes. There are no suspicious masses, suspicious calcifications, or new areas of architectural distortion. IMPRESSION: THERE IS NO MAMMOGRAPHIC EVIDENCE OF MALIGNANCY. A ROUTINE FOLLOW-UP MAMMOGRAM IN 1 YEAR IS RECOMMENDED. THE RESULTS OF THIS EXAM WERE SENT TO THE PATIENT. ACR BI-RADS Category 2 - Benign finding MAMMOGRAPHY NOTE: 1. A negative mammogram report should not delay a biopsy if a dominant of clinically suspicious mass is present. 2. Approximately 10% to 15% of breast cancers are not detected by mammography. 3. Adenosis and dense breasts may obscure an underlying neoplasm. Reported by: GABY SULLIVAN MD Electonically Signed: [id number]
== END 2019-08-29 09:47 | disposition home or self-care (01) ==
LOC: BICMAMMO 09:46
PROVIDERS: ATTEND Internal Medicine
DX: Z12.31 Encounter for screening mammogram for malignant neoplasm of breast (principal); M79.674 Pain in right toe(s); R60.0 Localized edema; M19.071 Primary osteoarthritis, right ankle and foot; Z91.89 Other specified personal risk factors, not elsewhere classified
CPT/HCPCS: 36415; 77063; 77067; 84550

== ENCOUNTER 2020-05-01 12:50 | Outpatient (CLI) | payer MEDICARE, OTHER | END 2020-05-01 12:51 | disposition home or self-care (01) | LOC: BICRAD 12:50 | PROVIDERS: ATTEND Internal Medicine Cardiovascular Disease | DX: R06.02 Shortness of breath (principal); R06.00 Dyspnea, unspecified; I70.0 Atherosclerosis of aorta; J84.89 Other specified interstitial pulmonary diseases | CPT/HCPCS: 71046 ==

== ENCOUNTER 2020-07-08 08:07 | Outpatient (CLI) | payer MEDICARE, OTHER | END 2020-07-08 08:08 | disposition home or self-care (01) | LOC: BICRAD 08:07 | PROVIDERS: ATTEND Internal Medicine Critical Care Medicine | DX: R06.00 Dyspnea, unspecified (principal) | CPT/HCPCS: 71046 ==

== ENCOUNTER 2020-09-18 10:30 | Observation (INO) | payer MEDICARE, OTHER ==
[~2020-09-18 10:30] MED LIST changes: -ISOVUE-370 76%-LOCM 1 ML ONE; +Iopamidol-370 76% 500 ML 1 ML ONE
[2020-09-18 13:22] LABS: #Eosinphils 0.3 thou/uL (0.0-0.7); #Lymphocytes 1.5 thou/uL (1.20-3.40); #Monocytes 0.6 thou/uL (0.11-0.59); #Neutrophils 5.5 thou/uL (1.40-6.50); %Basophils 0.6 % (0.0-1.0); %Eosinophils 3.3 % (0.0-10.0); %Lymphocytes 18.6 % (21.0-51.0); %Monocytes 7.7 % (0.0-10.0); %Neutrophils 69.8 % (42.0-75.0); Hemoglobin 13.1 g/dL (12.0-16.0); Mean Corpuscular HGB CONC 31.5 g/dL (32.0-36.0); Mean Corpuscular Hemoglobin 30.7 pg (27.0-31.0); Mean Corpuscular Volume 97.4 fL (78.0-98.0); Mean Platelet Volume 8.8 fL (7.4-10.4); Platelet Count 207 thou/uL (130-400); Red Blood Cell (RBC) Count 4.29 mill/uL (4.20-5.40); White Blood Cell (WBC) Count 7.9 thou/uL (4.8-10.8)
[2020-09-18 13:37] LABS: ALT (SGPT) 28 U/L (8-55); AST (SGOT) 45 U/L (5-34); Albumin 3.2 g/dL (3.4-4.8); Alkaline Phosphatase 146 U/L (40-110); Anion Gap 11 mmol/L (10-20); BUN (Urea Nitrogen) 25 mg/dL (9.8-20.1); Bilirubin, Total 0.8 mg/dL (0.2-1.2); Calc. Creatinine Clearance 0 mL/min (70-130); Calcium 9.6 mg/dL (7.8-10.44); Carbon Dioxide 31 mmol/L (23-31); Chloride 100 mmol/L (98-107); Globulin 4.4 g/dL (2.4-3.5); Glucose 131 mg/dL (83-110); Potassium 3.7 mmol/L (3.5-5.1); Protein, Total 7.6 g/dL (5.8-8.1); Sodium 138 mmol/L (136-145)
[2020-09-18] MEDS ORDERED: Albuterol 200 PUFF (6.7GM INHALER) ONE ×2 (14:30→14:57)
[2020-09-18] MEDS ORDERED: predniSONE 20 MG TAB ONE (14:53)
[2020-09-18] MEDS ORDERED: Furosemide 20 MG/2 ML VIAL ONE (15:29)
[2020-09-18 18:19] LABS: Troponin I Less than 0.010 ng/mL (< 0.028)
[2020-09-18] MEDS ORDERED: Acetaminophen 650 MG Suppository PR PRN (20:11)
[2020-09-18] MEDS ORDERED: Ondansetron PF 4 MG/2 ML Vial IVP PRN (20:11)
[2020-09-18] MEDS ORDERED: Ondansetron ODT 4 MG TAB PO PRN (20:11)
[2020-09-18] MEDS ORDERED: Acetaminophen 325 MG TAB PO PRN (20:11)
[2020-09-18] MEDS ORDERED: Dextrose 50% Abboject 50 ML SYRINGE SLOW IVP PRN (20:23)
[2020-09-18] MEDS ORDERED: Dextrose 5% in Water 1,000 ML IV PRN (20:23)
[2020-09-18] MEDS ORDERED: HumaLOG 300 UNITS/3 ML VIAL SC PRN (20:23)
[2020-09-18] MEDS ORDERED: Azithromycin 500 MG in Sodium Chloride 0.9% 250 ML 250 ML IVPB SCH (20:30)
[2020-09-18] MEDS ORDERED: Doxycycline 100 MG CAP PO SCH (21:00)
[2020-09-19] MEDS ORDERED: hydrALAZINE 20 MG/ML VIAL ONE (00:48)
[2020-09-19] MEDS: hydrALAZINE 20 MG/ML VIAL SLOW IVP PRN ×2 (00:59→15:40)
[2020-09-19 02:40] LABS: SARS-CoV-2 NAA Rapid Test Not Detected (NotDetected)
[2020-09-19] MEDS ORDERED: Doxycycline 100 MG in Syringe 0 ML IVPB SCH (04:00)
[2020-09-19 04:49] LABS: #Monocytes 0.4 thou/uL (0.11-0.59); #Neutrophils 7.4 thou/uL (1.40-6.50); %Basophils 0.2 % (0.0-1.0); %Lymphocytes 11.5 % (21.0-51.0); %Monocytes 4.1 % (0.0-10.0); %Neutrophils 84.2 % (42.0-75.0); Hemoglobin 13.6 g/dL (12.0-16.0); Mean Corpuscular HGB CONC 32.2 g/dL (32.0-36.0); Mean Corpuscular Hemoglobin 31.1 pg (27.0-31.0); Mean Corpuscular Volume 96.6 fL (78.0-98.0); Mean Platelet Volume 8.8 fL (7.4-10.4); Platelet Count 230 thou/uL (130-400); Red Blood Cell (RBC) Count 4.37 mill/uL (4.20-5.40); White Blood Cell (WBC) Count 8.7 thou/uL (4.8-10.8)
[2020-09-19 05:08] LABS: Anion Gap 14 mmol/L (10-20); BUN (Urea Nitrogen) 29 mg/dL (9.8-20.1); Calc. Creatinine Clearance 21 mL/min (70-130); Calcium 9.7 mg/dL (7.8-10.44); Carbon Dioxide 25 mmol/L (23-31); Chloride 99 mmol/L (98-107); Glucose 425 mg/dL (83-110); Potassium 4.4 mmol/L (3.5-5.1); Sodium 134 mmol/L (136-145)
[2020-09-19] MEDS ORDERED: HumaLOG 300 UNITS/3 ML VIAL ONE (05:31)
[2020-09-19] MEDS: HumaLOG 300 UNITS/3 ML VIAL SC PRN ×2 (05:32→17:57)
[2020-09-19] MEDS ORDERED: Enoxaparin Sodium 30 MG/0.3 ML SYRINGE SC SCH (09:00)
[2020-09-19] MEDS ORDERED: methylPREDNISolone Sod Succ 40 MG VIAL ONE (09:41)
[2020-09-19] MEDS ORDERED: Enoxaparin Sodium 40 MG/0.4 ML SYRINGE ONE (09:41)
[2020-09-19] MEDS ORDERED: Enoxaparin Sodium 30 MG/0.3 ML SYRINGE ONE (10:02)
[2020-09-19] MEDS: methylPREDNISolone Sod Succ 40 MG VIAL IVP SCH (10:05)
[2020-09-19] MEDS ORDERED: methylPREDNISolone Sod Succ 40 MG VIAL IVP SCH (20:18)
[2020-09-19] MEDS ORDERED: Atorvastatin Calcium 10 MG TAB PO SCH (21:00)
[2020-09-19] MEDS: Flecainide 50 MG TAB PO SCH (21:35)
[2020-09-19] MEDS: Apixaban 2.5 MG TAB PO SCH (21:35)
[2020-09-20] MEDS ORDERED: Levothyroxine Sodium 50 MCG TAB PO SCH (06:00)
[2020-09-20] MEDS: HumaLOG 300 UNITS/3 ML VIAL SC PRN ×2 (06:08→12:46)
[2020-09-20] MEDS: Apixaban 2.5 MG TAB PO SCH (08:47)
[2020-09-20] MEDS: methylPREDNISolone Sod Succ 40 MG VIAL IVP SCH (08:47)
[2020-09-20] MEDS: Flecainide 50 MG TAB PO SCH (08:47)
[2020-09-20] MEDS ORDERED: Cholecalciferol 1,000 UNITS (25 MCG) TAB PO SCH (09:00)
[2020-09-20] MEDS ORDERED: Aspirin 81 mg Enteric Coated Tablet PO SCH (09:00)
[2020-09-20] MEDS ORDERED: Furosemide 40 MG TAB PO SCH (09:00)
[2020-09-20 12:36] VITALS: TEMP 98.1
[2020-09-20 15:04] VITALS: BMI 39.8
[2020-09-20 15:38] VITALS: BP 141/67
== END 2020-09-20 17:55 | disposition home or self-care (01) ==
LOC: ERS 10:30 → INTOOBSV 16:29 → ERHOLD 16:29 → 2SW 09-19 13:23
PROVIDERS: ADMIT Internal Medicine; ATTEND Internal Medicine
DX: J84.112 Idiopathic pulmonary fibrosis (principal); J96.90 Respiratory failure, unspecified, unspecified whether with hypoxia or hypercapnia; I48.20 Chronic atrial fibrillation, unspecified; I16.0 Hypertensive urgency; I12.9 Hypertensive chronic kidney disease with stage 1 through stage 4 chronic kidney disease, or unspecified chronic kidney disease; E11.22 Type 2 diabetes mellitus with diabetic chronic kidney disease; N18.30 Chronic kidney disease, stage 3 unspecified; E03.9 Hypothyroidism, unspecified; E78.5 Hyperlipidemia, unspecified; M19.90 Unspecified osteoarthritis, unspecified site; E78.00 Pure hypercholesterolemia, unspecified; I08.3 Combined rheumatic disorders of mitral, aortic and tricuspid valves; Z79.01 Long term (current) use of anticoagulants; Z79.4 Long term (current) use of insulin; Z79.82 Long term (current) use of aspirin; Z79.899 Other long term (current) drug therapy; Z88.1 Allergy status to other antibiotic agents; Z20.822 Contact with and (suspected) exposure to COVID-19
CPT/HCPCS: 0240U; 36415; 36416; 71045; 71275; 80048; 80053; 83880; 84145; 84484; 85025; 93005; 93306; 96374; J0360; J1650; J1815; J1940; J2920; J3490; J7512; J7620; Q9967

== ENCOUNTER 2020-09-24 10:31 | Outpatient (CLI) | payer MEDICARE, OTHER | END 2020-09-24 10:32 | disposition home or self-care (01) | LOC: BICRAD 10:31 | PROVIDERS: ATTEND Internal Medicine Critical Care Medicine | DX: R06.00 Dyspnea, unspecified (principal); J84.10 Pulmonary fibrosis, unspecified | CPT/HCPCS: 71046 ==

== ENCOUNTER 2020-12-28 12:53 | Emergency (ER) | payer MEDICARE, OTHER ==
[2020-12-28 13:27] LABS: #Basophils 0.1 thou/uL (0.0-0.2); #Eosinphils 0.2 thou/uL (0.0-0.7); #Lymphocytes 2.6 thou/uL (1.20-3.40); #Monocytes 0.7 thou/uL (0.11-0.59); %Basophils 0.6 % (0.0-1.0); %Eosinophils 2.1 % (0.0-10.0); %Lymphocytes 27.2 % (21.0-51.0); %Monocytes 7.7 % (0.0-10.0); %Neutrophils 62.4 % (42.0-75.0); Hemoglobin 13.9 g/dL (12.0-16.0); Mean Corpuscular HGB CONC 32.6 g/dL (32.0-36.0); Mean Corpuscular Hemoglobin 31.7 pg (27.0-31.0); Mean Corpuscular Volume 97.1 fL (78.0-98.0); Mean Platelet Volume 11.2 fL (7.4-10.4); Platelet Count 50 thou/uL (130-400); RBC Distribution Width 12.4 % (11.5-14.5); Red Blood Cell (RBC) Count 4.38 mill/uL (4.20-5.40); White Blood Cell (WBC) Count 9.7 thou/uL (4.8-10.8)
[2020-12-28 13:43] LABS: ALT (SGPT) 24 U/L (8-55); AST (SGOT) 37 U/L (5-34); Albumin 3.3 g/dL (3.4-4.8); Alkaline Phosphatase 153 U/L (40-110); Anion Gap 17 mmol/L (10-20); BUN (Urea Nitrogen) 27 mg/dL (9.8-20.1); Bilirubin, Total 0.7 mg/dL (0.2-1.2); Calc. Creatinine Clearance 0 mL/min (70-130); Carbon Dioxide 27 mmol/L (23-31); Chloride 97 mmol/L (98-107); Globulin 3.5 g/dL (2.4-3.5); Glucose 446 mg/dL (83-110); Potassium 4.2 mmol/L (3.5-5.1); Protein, Total 6.8 g/dL (5.8-8.1); Sodium 137 mmol/L (136-145)
[2020-12-28] MEDS ORDERED: Acetaminophen 500 MG TAB ONE (16:15)
== END 2020-12-28 16:30 | disposition home or self-care (01) ==
LOC: ERS 12:53
DX: S00.83XA Contusion of other part of head, initial encounter (principal); E11.9 Type 2 diabetes mellitus without complications; E03.9 Hypothyroidism, unspecified; E78.5 Hyperlipidemia, unspecified; E78.00 Pure hypercholesterolemia, unspecified; I10 Essential (primary) hypertension; Z79.01 Long term (current) use of anticoagulants; Z79.82 Long term (current) use of aspirin; Z79.899 Other long term (current) drug therapy; W19.XXXA Unspecified fall, initial encounter
CPT/HCPCS: 70450; 71045; 72170; 80053; 83880; 84484; 85025; 93005

== ENCOUNTER 2020-12-28 17:33 | Inpatient (IN) | payer MEDICARE, OTHER ==
[2020-12-28 18:01] LABS: #Basophils 0.1 thou/uL (0.0-0.2); #Eosinphils 0.1 thou/uL (0.0-0.7); #Lymphocytes 1.8 thou/uL (1.20-3.40); #Monocytes 0.6 thou/uL (0.11-0.59); #Neutrophils 7.4 thou/uL (1.40-6.50); %Basophils 0.7 % (0.0-1.0); %Eosinophils 1.1 % (0.0-10.0); %Lymphocytes 17.8 % (21.0-51.0); %Monocytes 6.1 % (0.0-10.0); %Neutrophils 74.3 % (42.0-75.0); Hemoglobin 13.6 g/dL (12.0-16.0); Mean Corpuscular HGB CONC 32.2 g/dL (32.0-36.0); Mean Corpuscular Hemoglobin 31.4 pg (27.0-31.0); Mean Corpuscular Volume 97.4 fL (78.0-98.0); Mean Platelet Volume 10.5 fL (7.4-10.4); Platelet Count 59 thou/uL (130-400); RBC Distribution Width 12.4 % (11.5-14.5); Red Blood Cell (RBC) Count 4.34 mill/uL (4.20-5.40); White Blood Cell (WBC) Count 9.9 thou/uL (4.8-10.8)
[2020-12-28 18:31] LABS: AST (SGOT) 51 U/L (5-34); Albumin 3.3 g/dL (3.4-4.8); Anion Gap 16 mmol/L (10-20); Bilirubin, Total 0.8 mg/dL (0.2-1.2); Calc. Creatinine Clearance 0 mL/min (70-130); Calcium 9.3 mg/dL (7.8-10.44); Carbon Dioxide 30 mmol/L (23-31); Chloride 97 mmol/L (98-107); Globulin 3.7 g/dL (2.4-3.5); Potassium 4.2 mmol/L (3.5-5.1); Sodium 139 mmol/L (136-145)
[2020-12-28 18:41] LABS: ALT (SGPT) 28 U/L (8-55); Alkaline Phosphatase 159 U/L (40-110); BUN (Urea Nitrogen) 28 mg/dL (9.8-20.1); Glucose 430 mg/dL (83-110)
[2020-12-28 21:06] LABS: Bacteria/HPF 4+ HPF (None Seen); Bilirubin Negative (Negative); Blood, Urine 2+ (Negative); Clarity Clear (Clear); Glucose, Urine (Dipstick) >=1000 mg/dL (Negative); Ketone, Urine Negative (Negative); Leukocyte 75 Leu/uL (Negative); Nitrite Negative (Negative); Protein, Urine (Dipstick) 10 mg/dL (Neg-Trace); Specific Gravity, Urine 1.008 (1.002-1.036); Squamous Epithelial 0-3 HPF (0-3); Urobilinogen Normal mg/dL (Less than 2); pH, Urine 6.5 (5.0-9.0)
[2020-12-28 21:13] LABS: Lactic Acid 2.1 mmol/L (0.5-2.2)
[2020-12-28] MEDS ORDERED: Acetaminophen 500 MG TAB ONE (21:17)
[2020-12-28 21:18] LABS: Yeast-Budding 1+ HPF (None Seen)
[2020-12-28] MEDS ORDERED: cefTRIAXone\\ROCEPHIN 1 GM VIAL ONE (21:50)
[2020-12-29] MEDS ORDERED: Dextrose 5% in Water 1,000 ML IV PRN (00:54)
[2020-12-29] MEDS ORDERED: Dextrose 50% Abboject 50 ML SYRINGE SLOW IVP PRN (00:54)
[2020-12-29] MEDS: Acetaminophen 325 MG TAB PO PRN ×2 (04:33→21:37)
[2020-12-29 04:59] LABS: #Eosinphils 0.1 thou/uL (0.0-0.7); #Lymphocytes 1.4 thou/uL (1.20-3.40); #Monocytes 0.7 thou/uL (0.11-0.59); #Neutrophils 5.3 thou/uL (1.40-6.50); %Basophils 0.5 % (0.0-1.0); %Eosinophils 1.9 % (0.0-10.0); %Lymphocytes 17.8 % (21.0-51.0); %Monocytes 9.8 % (0.0-10.0); %Neutrophils 69.9 % (42.0-75.0); Hemoglobin 12.4 g/dL (12.0-16.0); Mean Corpuscular HGB CONC 33.2 g/dL (32.0-36.0); Mean Corpuscular Hemoglobin 31.9 pg (27.0-31.0); Mean Corpuscular Volume 96.2 fL (78.0-98.0); Mean Platelet Volume 9.8 fL (7.4-10.4); Platelet Count 52 thou/uL (130-400); RBC Distribution Width 12.3 % (11.5-14.5); Red Blood Cell (RBC) Count 3.88 mill/uL (4.20-5.40); White Blood Cell (WBC) Count 7.6 thou/uL (4.8-10.8)
[2020-12-29 05:00] VITALS: BMI 24.3
[2020-12-29 05:03] LABS: Anion Gap 13 mmol/L (10-20); BUN (Urea Nitrogen) 26 mg/dL (9.8-20.1); Calc. Creatinine Clearance 23 mL/min (70-130); Calcium 8.9 mg/dL (7.8-10.44); Carbon Dioxide 26 mmol/L (23-31); Chloride 101 mmol/L (98-107); Glucose 366 mg/dL (83-110); Potassium 4.3 mmol/L (3.5-5.1); Sodium 136 mmol/L (136-145)
[2020-12-29] MEDS: HumaLOG 300 UNITS/3 ML VIAL SC PRN ×3 (05:40→21:41)
[2020-12-29] MEDS: Sodium Chloride 0.9% 1,000 ML IV SCH ×2 (06:36→21:47)
[2020-12-29] MEDS: Flecainide 50 MG TAB PO SCH ×2 (08:13→21:36)
[2020-12-29] MEDS: Lantus 1000 UNITS/10 ML VIAL SC SCH ×2 (10:48→21:41)
[2020-12-29] MEDS ORDERED: Sodium Chloride 0.9% 250 ML IV SCH (11:15)
[2020-12-29 21:13] LABS: SARS-CoV-2 PCR by NAA DETECTED (NotDetected)
[2020-12-29] MEDS ORDERED: cefTRIAXone\\ROCEPHIN 1 GM in Sodium Chloride 0.9% 100 ML IVPB SCH (22:00)
[2020-12-30 04:57] LABS: #Eosinphils 0.3 thou/uL (0.0-0.7); #Lymphocytes 1.2 thou/uL (1.20-3.40); #Monocytes 0.6 thou/uL (0.11-0.59); #Neutrophils 3.6 thou/uL (1.40-6.50); %Basophils 0.4 % (0.0-1.0); %Eosinophils 5.6 % (0.0-10.0); %Lymphocytes 20.9 % (21.0-51.0); %Monocytes 9.6 % (0.0-10.0); %Neutrophils 63.4 % (42.0-75.0); Hemoglobin 11.4 g/dL (12.0-16.0); Mean Corpuscular Hemoglobin 32.1 pg (27.0-31.0); Mean Corpuscular Volume 97.3 fL (78.0-98.0); Mean Platelet Volume 10.2 fL (7.4-10.4); Platelet Count 61 thou/uL (130-400); RBC Distribution Width 12.4 % (11.5-14.5); Red Blood Cell (RBC) Count 3.57 mill/uL (4.20-5.40); White Blood Cell (WBC) Count 5.8 thou/uL (4.8-10.8)
[2020-12-30 05:26] LABS: Anion Gap 9 mmol/L (10-20); BUN (Urea Nitrogen) 27 mg/dL (9.8-20.1); Calc. Creatinine Clearance 31 mL/min (70-130); Calcium 8.9 mg/dL (7.8-10.44); Carbon Dioxide 26 mmol/L (23-31); Chloride 106 mmol/L (98-107); Glucose 174 mg/dL (83-110); Sodium 137 mmol/L (136-145)
[2020-12-30] MEDS: HumaLOG 300 UNITS/3 ML VIAL SC PRN ×3 (06:14→20:41)
[2020-12-30] MEDS: Aspirin Chewable 81 MG TAB PO SCH (07:50)
[2020-12-30] MEDS: Metoprolol Tartrate 50 MG TAB PO SCH ×2 (07:50→20:46)
[2020-12-30] MEDS: Lantus 1000 UNITS/10 ML VIAL SC SCH ×2 (07:52→20:40)
[2020-12-30] MEDS: Acetaminophen 325 MG TAB PO PRN ×2 (08:09→20:46)
[2020-12-30] MEDS: Ondansetron PF 4 MG/2 ML Vial IVP PRN (14:09)
[2020-12-30] MEDS: Sodium Chloride 0.9% 1,000 ML IV SCH (20:47)
[2020-12-31 05:21] LABS: #Eosinphils 0.5 thou/uL (0.0-0.7); #Lymphocytes 1.4 thou/uL (1.20-3.40); #Monocytes 0.7 thou/uL (0.11-0.59); #Neutrophils 4.6 thou/uL (1.40-6.50); %Basophils 0.6 % (0.0-1.0); %Lymphocytes 19.7 % (21.0-51.0); %Monocytes 9.1 % (0.0-10.0); %Neutrophils 63.6 % (42.0-75.0); Mean Corpuscular HGB CONC 32.1 g/dL (32.0-36.0); Mean Corpuscular Hemoglobin 31.3 pg (27.0-31.0); Mean Corpuscular Volume 97.5 fL (78.0-98.0); Platelet Count 86 thou/uL (130-400); RBC Distribution Width 12.5 % (11.5-14.5); Red Blood Cell (RBC) Count 3.85 mill/uL (4.20-5.40); White Blood Cell (WBC) Count 7.3 thou/uL (4.8-10.8)
[2020-12-31 05:34] LABS: Anion Gap 11 mmol/L (10-20); BUN (Urea Nitrogen) 25 mg/dL (9.8-20.1); Calc. Creatinine Clearance 31 mL/min (70-130); Calcium 8.9 mg/dL (7.8-10.44); Carbon Dioxide 26 mmol/L (23-31); Chloride 106 mmol/L (98-107); Glucose 92 mg/dL (83-110); Potassium 4.2 mmol/L (3.5-5.1); Sodium 139 mmol/L (136-145)
[2020-12-31] MEDS: Lantus 1000 UNITS/10 ML VIAL SC SCH ×2 (08:19→20:40)
[2020-12-31] MEDS: Aspirin Chewable 81 MG TAB PO SCH (08:26)
[2020-12-31] MEDS: Metoprolol Tartrate 50 MG TAB PO SCH ×2 (08:31→20:41)
[2020-12-31] MEDS: Acetaminophen 325 MG TAB PO PRN (18:14)
[2020-12-31] MEDS: HumaLOG 300 UNITS/3 ML VIAL SC PRN (20:39)
[2021-01-01] MEDS: Sodium Chloride 0.9% 1,000 ML IV SCH (00:21)
[2021-01-01] MEDS: Ondansetron PF 4 MG/2 ML Vial IVP PRN (05:17)
[2021-01-01] MEDS: Aspirin Chewable 81 MG TAB PO SCH (09:04)
[2021-01-01] MEDS: Lantus 1000 UNITS/10 ML VIAL SC SCH (09:08)
[2021-01-01] MEDS: Acetaminophen 325 MG TAB PO PRN (10:34)
[2021-01-01 11:56] VITALS: TEMP 98.2
[2021-01-01 15:15] VITALS: BP 142/65
== END 2021-01-01 17:34 | DRG 689 ==
LOC: ERS 17:33 → 2NO 21:57 → OBSVTOIN 12-29 07:21 → 2NO 12-29 13:44
PROVIDERS: ADMIT Internal Medicine; ATTEND Internal Medicine
DX: N30.00 Acute cystitis without hematuria (principal); U07.1 COVID-19; N17.9 Acute kidney failure, unspecified; I48.19 Other persistent atrial fibrillation; I50.32 Chronic diastolic (congestive) heart failure; I13.0 Hypertensive heart and chronic kidney disease with heart failure and stage 1 through stage 4 chronic kidney disease, or unspecified chronic kidney disease; B96.20 Unspecified Escherichia coli [E. coli] as the cause of diseases classified elsewhere; N18.9 Chronic kidney disease, unspecified; D69.6 Thrombocytopenia, unspecified; F32.A Depression, unspecified; I44.7 Left bundle-branch block, unspecified; I35.0 Nonrheumatic aortic (valve) stenosis; E11.22 Type 2 diabetes mellitus with diabetic chronic kidney disease; E11.65 Type 2 diabetes mellitus with hyperglycemia; E78.5 Hyperlipidemia, unspecified; J84.112 Idiopathic pulmonary fibrosis; E03.9 Hypothyroidism, unspecified; R29.6 Repeated falls; S00.83XA Contusion of other part of head, initial encounter; W18.30XA Fall on same level, unspecified, initial encounter; Z85.828 Personal history of other malignant neoplasm of skin; Z88.1 Allergy status to other antibiotic agents; Z79.01 Long term (current) use of anticoagulants; Z79.82 Long term (current) use of aspirin; Z79.890 Hormone replacement therapy; Z79.4 Long term (current) use of insulin; Z79.899 Other long term (current) drug therapy; Z90.49 Acquired absence of other specified parts of digestive tract; Z90.710 Acquired absence of both cervix and uterus; Z82.3 Family history of stroke; Z80.9 Family history of malignant neoplasm, unspecified
CPT/HCPCS: 36415; 36416; 70450; 71045; 72100; 72125; 72128; 72131; 72170; 80048; 80053; 81003; 81015; 83605; 83880; 84443; 84484; 85025; 87040; 87077; 87086; 87186; 93005; 93010; 93306; G0378; J0696; J1815; J2405; J3490; J7030; J7050; U0003; U0005

== ENCOUNTER 2021-03-12 10:56 | Outpatient (CLI) | payer MEDICARE, OTHER | END 2021-03-12 10:57 | disposition home or self-care (01) | LOC: RAD 10:56 | PROVIDERS: ATTEND Internal Medicine Critical Care Medicine | DX: R06.00 Dyspnea, unspecified (principal) | CPT/HCPCS: 71046 ==